=== PATIENT | female | born 1990 | race Caucasian/White ===

== ENCOUNTER → 2017-06-05 | Outpatient (CLI) | payer OTHER ==
--- NOTE | 2017-06-05 18:16 | US ---
EXAMINATION TYPE: US gallbladder DATE OF EXAM: 06/05/2017 COMPARISON: NONE CLINICAL HISTORY: R10.9 Abdominal Pain K21.9 Gerd. RUQ pain and nausea EXAM MEASUREMENTS: Liver Length: 21.6 cm Gallbladder Wall: 3 cm CBD: 0.41 cm Right Kidney: 12.5 x 4.0 x 5.4 cm Exam limitations due to body habitus. Pancreas: Tail obscured by overlying bowel gas Liver: Increased attenuation Gallbladder: echogenic foci seen with shadowing Evidence for sonographic Johnston's sign: No CBD: wnl Right Kidney: No hydronephrosis or masses seen Echogenic foci seen in gallbladder with shadowing. IMPRESSION: Multiple gallstones. No dilated ducts.
== END | disposition home or self-care (01) ==
LOC: RADUSMAIN 16:46
PROVIDERS: ATTEND Family Medicine
DX: K80.80 Other cholelithiasis without obstruction (principal)
CPT/HCPCS: 76705

== ENCOUNTER → 2017-06-08 | Outpatient (CLI) | payer OTHER ==
[2017-06-08 11:13] LABS: HCT 43.1 % (34.0-46.0); HGB 14.2 gm/dL (11.4-16.0); MCH 29.2 pg (25.0-35.0); MCHC 33.1 g/dL (31.0-37.0); MCV 88.2 fL (80.0-100.0); Mean Platelet Volume 8.2; Platelet Count 341 k/uL (150-450); RBC 4.89 m/uL (3.80-5.40); RDW 13.6 % (11.5-15.5); WBC 12.1 k/uL (3.8-10.6)
== END | disposition home or self-care (01) ==
LOC: LABPAT 09:45
PROVIDERS: ATTEND Surgery
DX: Z01.812 Encounter for preprocedural laboratory examination (principal); K80.80 Other cholelithiasis without obstruction
CPT/HCPCS: 36415; 85027

== ENCOUNTER 2017-06-11 09:56 | Day surgery (SDC) | payer OTHER ==
[2017-06-08 09:05] VITALS: BMI 46.7
[~2017-06-11 09:56] MED LIST: DEXAMETHASONE SOD PHOSPHATE 10 MG/ML 1 ML VIAL IV ONE; HEPARIN SODIUM,PORCINE 5,000 UNIT/ML 1 ML VIAL SQ ONE; LACTATED RINGERS 1,000 ML IV SCH; MIDAZOLAM 2 MG/2 ML VIAL IV PRN; MORPHINE SULFATE 4 MG/ML SYRINGE IV PRN; ONDANSETRON 4 MG/2 ML VIAL IVP ONE; SCOPOLAMINE 1.5MG/72HR PATCH TRANSDERM ONE
[2017-06-11] MEDS ORDERED: LIDOCAINE 1% 20 ML VIAL (10MG/ML) FOR IV START INTRADERMA ONE (10:20)
--- NOTE | 2017-06-11 10:50 | P.GSHP ---
History of Present Illness H&P Date: 06/11/17 Chief Complaint: Right upper quadrant pain Is a 26-year-old female for from Dr. Samuels. Patient rents today for laparoscopic cholestatic. She's had complaints of right quadrant pain. Her recent ultrasound shows evidence of cholelithiasis. Past Medical History Past Medical History: No Reported History Additional Past Medical History / Comment(s): migraines History of Any Multi-Drug Resistant Organisms: None Reported Past Surgical History: Tonsillectomy Additional Past Surgical History / Comment(s): carpal tunnel repair Past Anesthesia/Blood Transfusion Reactions: No Reported Reaction Smoking Status: Current every day smoker - Past Family History Mother Family Medical History: No Reported History Medications and Allergies Home Medications Medication Instructions Recorded Confirmed Type Ibuprofen [Motrin] 800 mg PO Q6HR PRN 11/23/14 06/11/17 History Dextroamphetamine/Amphetamine 30 mg PO BID 06/08/17 06/11/17 History [Adderall] Allergies Allergy/AdvReac Type Severity Reaction Status Date / Time No Known Allergies Allergy Verified 06/11/17 10:21 Surgical - Exam Vital Signs Temp Pulse Resp BP Pulse Ox 97.8 F 75 16 158/89 97 06/11/17 10:38 06/11/17 10:38 06/11/17 10:38 06/11/17 10:38 06/11/17 10:38 - General well developed, no distress - Eyes PERRL - ENT normal pinna - Neck no masses - Respiratory normal expansion - Cardiovascular Rhythm: regular - Abdomen Abdomen: soft, non tender Assessment and Plan Assessment: Roddick cholecystitis Cholelithiasis We'll perform laparoscopic cholecystectomy.
[2017-06-11] MEDS ORDERED: HYDROmorphone (PF) 1 MG/ML ONE (11:09)
[2017-06-11] MEDS ORDERED: LIDOCAINE 1% INJ 10MG/ML (20 ML MDV) ONE (11:09)
[2017-06-11] MEDS ORDERED: fentaNYL (PF) 50 MCG/ML 2 ML AMP ONE (11:09)
[2017-06-11] MEDS ORDERED: PROPOFOL 10 MG/ML 20 ML VIAL IV ONE (11:09)
[2017-06-11] MEDS ORDERED: GLYCOPYRROLATE 0.2 MG/ML 2 ML VIAL ONE (11:09)
[2017-06-11] MEDS ORDERED: KETOROLAC 30 MG/ML 1 ML VIAL ONE (11:09)
[2017-06-11] MEDS ORDERED: MIDAZOLAM 2 MG/2 ML VIAL ONE (11:09)
[2017-06-11] MEDS ORDERED: ROCURONIUM BROMIDE 10 MG/ML 10 ML VIAL IV ONE (11:09)
[2017-06-11] MEDS ORDERED: SUCCINYLCHOLINE CHLORIDE 100 MG/5 ML SYR IV ONE (11:09)
[2017-06-11] MEDS ORDERED: NEOSTIGMINE 1 MG/ML 10 ML VIAL ONE (11:09)
[2017-06-11] MEDS ORDERED: BUPIVACAINE (PF) 0.25% 30 ML VIAL SQ ONE ×2 (11:29→11:35)
--- NOTE | 2017-06-11 11:54 | P.OP ---
Date of Procedure: 06/11/17 Preoperative Diagnosis: Cholecystitis Postoperative Diagnosis: Cholecystitis Procedure(s) Performed: Laparoscopic cholecystectomy Anesthesia: FABI Surgeon: John Fuentes Estimated Blood Loss (ml): 5 Pathology: other (Gallbladder) Condition: stable Disposition: PACU Description of Procedure: The patient was placed on the operating table. The patient received a general endotracheal tube anesthesia. The patients abdomen was prepped and draped in the usual sterile fashion. Through an infraumbilical stab incision, the fascia of the anterior abdominal wall was grasped with a pair of Kochers and then the Veress needle was placed in the peritoneal cavity. Position of the Veress needle was confirmed with positive drop test. The abdomen was then insufflated. After adequate insufflation, the 10 mm trocar was placed in the peritoneal cavity. Following this the laparoscope was placed in the peritoneal cavity. The patient was placed in the head-up, right side up position and then a 5 mm trocar was placed in the right lateral and right subcostal position under direct visualization. A 8 mm trocar was placed in the epigastric position. The gallbladder was grasped in the fundus and infundibulum. Traction on the gallbladder was placed in the lateral and the cephalad positions. The triangle of Calot was visualized.. The cystic duct was bluntly dissected until the union of the cystic duct and common bile duct was seen. The cystic duct was then divided and sealed with the Harmonic scissors. A PDS Endoloop was then placed throughout the cystic duct stump. The cystic artery divided and sealed with the Harmonic scissors. The gallbladder was then removed from the liver bed using Harmonic scissors. The gallbladder was then extracted through the epigastric port site. Operative field was checked for any bleeding spots and Harmonic scissors was used to coagulate the liver bed. The abdomen was irrigated. The trocars were removed. The skin was closed using interrupted 3-0 Vicryl suture. Dermabond dressing were applied. The patient tolerated the procedure well.
[2017-06-11 12:12] VITALS: TEMP 97.1
[2017-06-11] MEDS ORDERED: HYDROmorphone 2 MG/ML 1 ML SYRINGE IVP ONE ×3 (12:12→12:48)
[2017-06-11] MEDS ORDERED: diphenhydrAMINE 50 MG/ML 1 ML VIAL IVP ONE (13:37)
[2017-06-11] MEDS ORDERED: HYDROcodone/APAP 7.5-325MG 1 EACH TAB PO ONE (15:21)
[2017-06-11 15:34] VITALS: BP 121/81; PULSE 90; RESP 20
== END 2017-06-11 16:05 | disposition home or self-care (01) ==
LOC: OR 09:56
PROVIDERS: ATTEND Surgery
DX: K80.10 Calculus of gallbladder with chronic cholecystitis without obstruction (principal); F90.9 Attention-deficit hyperactivity disorder, unspecified type; G43.909 Migraine, unspecified, not intractable, without status migrainosus; F17.200 Nicotine dependence, unspecified, uncomplicated; Z79.899 Other long term (current) drug therapy
CPT/HCPCS: 47562; 81025; 88304; J2250; J1170 ×2; J1200; J1644; J1100; J2710; J0690; J2405; J2001; J3010; J1885; J0330; J2704

== ENCOUNTER 2017-09-20 11:44 | Emergency (ER) | payer OTHER ==
[2017-09-20] MEDS ORDERED: ONDANSETRON 4 MG/2 ML VIAL IVP STA (12:02)
[2017-09-20] MEDS ORDERED: SODIUM CHLORIDE 0.9% 1,000 ML IV STA (12:02)
--- NOTE | 2017-09-20 12:05 | ED ---
General Adult HPI - General Chief complaint: Nausea/Vomiting/Diarrhea Stated complaint: Vomiting Time Seen by Provider: 09/20/17 11:53 Source: patient, RN notes reviewed Mode of arrival: ambulatory Limitations: no limitations - History of Present Illness Initial comments: 27-year-old female presents for evaluation nausea vomiting. Patient's symptoms began while at work yesterday approximately 12 hours prior to arrival. She's had approximately 3 episodes of vomiting each hour which she describes as primarily stomach acid. No blood. Patient is also had several episodes of diarrhea associated with this. She complains of nausea with minimal abdominal pain. Pain only present with vomiting. Patient is currently 4 weeks . She had artificial insemination 4 weeks ago and has not had menstrual cycle. She did take a home test which was positive. She denies any lower abdominal cramping. Denies vaginal bleeding or vaginal discharge. - Related Data Home Medications Medication Instructions Recorded Confirmed Azithromycin [Zithromax Z-pack] See Taper PO DAILY 09/20/17 09/20/17 Previous Rx's Medication Instructions Recorded Ondansetron Odt [Zofran Odt] 4 mg PO Q8HR PRN #10 tab 09/20/17 Pnv No.95/Ferrous Fum/Folic AC 1 each PO DAILY #90 tablet 09/20/17 [ Multivitamin Tablet] Allergies Allergy/AdvReac Type Severity Reaction Status Date / Time No Known Allergies Allergy Verified 09/20/17 11:58 Review of Systems ROS Statement: Those systems with pertinent positive or pertinent negative responses have been documented in the HPI. ROS Other: All systems not noted in ROS Statement are negative. Past Medical History Past Medical History: No Reported History Additional Past Medical History / Comment(s): migraines History of Any Multi-Drug Resistant Organisms: None Reported Past Surgical History: Tonsillectomy Additional Past Surgical History / Comment(s): carpal tunnel repair Past Anesthesia/Blood Transfusion Reactions: No Reported Reaction Past Psychological History: ADD/ADHD, Depression Smoking Status: Current every day smoker Past Alcohol Use History: None Reported Past Drug Use History: None Reported - Past Family History Mother Family Medical History: No Reported History General Exam Limitations: no limitations General appearance: alert, in no apparent distress Head exam: Present: atraumatic, normocephalic Eye exam: Present: normal appearance, PERRL ENT exam: Present: normal exam Neck exam: Present: normal inspection. Absent: tenderness, meningismus Respiratory exam: Present: normal lung sounds bilaterally. Absent: respiratory distress, wheezes Cardiovascular Exam: Present: normal rhythm, tachycardia GI/Abdominal exam: Present: soft. Absent: distended, tenderness, guarding Extremities exam: Present: normal inspection, normal capillary refill. Absent: pedal edema Back exam: Present: normal inspection, full ROM Neurological exam: Present: alert, oriented X3, CN II-XII intact. Absent: motor sensory deficit Psychiatric exam: Present: normal affect, normal mood Skin exam: Present: warm, dry, intact. Absent: cyanosis, diaphoretic Course Vital Signs 09/20/17 11:50 Temperature 98 F Pulse Rate 106 H Respiratory 20 Rate Blood Pressure 125/91 O2 Sat by Pulse 98 Oximetry - Reevaluation(s) Reevaluation #1: 09/20/17 14:13 On reevaluation, patient is feeling better, no episodes of vomiting. Medical Decision Making - Medical Decision Making 27-year-old female presenting with nausea and vomiting. She also had some mild diarrhea. Overall well-appearing, stable vitals, soft nondistended abdomen. Laboratory studies reveal mild leukocytosis at 12.2 nonspecific at this time. Hemoglobin stable, lites within normal limits. Urine is positive for 1+ ketones consistent with dehydration. Beta hCG is 760. This does represent early . Patient is having no lower abdominal cramping and no vaginal bleeding. She will follow-up with OB as an outpatient. She is given Zofran and vitamins. - Lab Data Result diagrams: 09/20/17 12:55 09/20/17 12:55 Lab Results 09/20/17 09/20/17 09/20/17 Range/Units 11:45 11:45 12:55 WBC 12.2 H (3.8-10.6) k/uL RBC 5.08 (3.80-5.40) m/uL Hgb 15.1 (11.4-16.0) gm/dL Hct 43.0 (34.0-46.0) % MCV 84.7 (80.0-100.0) fL MCH 29.8 (25.0-35.0) pg MCHC 35.2 (31.0-37.0) g/dL RDW 12.6 (11.5-15.5) % Plt Count 276 (150-450) k/uL Neutrophils % 92 % Lymphocytes % 4 % Monocytes % 3 % Eosinophils % 1 % Basophils % 0 % Neutrophils # 11.2 H (1.3-7.7) k/uL Lymphocytes # 0.5 L (1.0-4.8) k/uL Monocytes # 0.4 (0-1.0) k/uL Eosinophils # 0.1 (0-0.7) k/uL Basophils # 0.0 (0-0.2) k/uL Sodium (137-145) mmol/L Potassium (3.5-5.1) mmol/L Chloride (98-107) mmol/L Carbon Dioxide (22-30) mmol/L Anion Gap mmol/L BUN (7-17) mg/dL Creatinine (0.52-1.04) mg/dL Est GFR (CKD-EPI)AfAm (>60 ml/min/1.73 sqM) Est GFR (CKD-EPI)NonAf (>60 ml/min/1.73 sqM) Glucose (74-99) mg/dL Calcium (8.4-10.2) mg/dL Total Bilirubin (0.2-1.3) mg/dL AST (14-36) U/L ALT (9-52) U/L Alkaline Phosphatase (38-126) U/L Total Protein (6.3-8.2) g/dL Albumin (3.5-5.0) g/dL Lipase (23-300) U/L HCG, Quant mIU/mL Urine Color Yellow Urine Appearance Turbid H (Clear) Urine pH 6.5 (5.0-8.0) Ur Specific [place] 1.026 (1.001-1.035) Urine Protein 1+ H (Negative) Urine Glucose (UA) Negative (Negative) Urine Ketones 1+ H (Negative) Urine Blood Negative (Negative) Urine Nitrite Negative (Negative) Urine Bilirubin Negative (Negative) Urine Urobilinogen <2.0 (<2.0) mg/dL Ur Leukocyte Esterase Trace H (Negative) Ur Squamous Epith Cells 18 H (0-4) /hpf Amorphous Sediment Rare H (None) /hpf Urine Mucus Many H (None) /hpf Urine HCG, Qual Detected (Not Detectd) 09/20/17 Range/Units 12:55 WBC (3.8-10.6) k/uL RBC (3.80-5.40) m/uL Hgb (11.4-16.0) gm/dL Hct (34.0-46.0) % MCV (80.0-100.0) fL MCH (25.0-35.0) pg MCHC (31.0-37.0) g/dL RDW (11.5-15.5) % Plt Count (150-450) k/uL Neutrophils % % Lymphocytes % % Monocytes % % Eosinophils % % Basophils % % Neutrophils # (1.3-7.7) k/uL Lymphocytes # (1.0-4.8) k/uL Monocytes # (0-1.0) k/uL Eosinophils # (0-0.7) k/uL Basophils # (0-0.2) k/uL Sodium 141 (137-145) mmol/L Potassium 4.4 (3.5-5.1) mmol/L Chloride 104 (98-107) mmol/L Carbon Dioxide 23 (22-30) mmol/L Anion Gap 14 mmol/L BUN 8 (7-17) mg/dL Creatinine 0.54 (0.52-1.04) mg/dL Est GFR (CKD-EPI)AfAm >90 (>60 ml/min/1.73 sqM) Est GFR (CKD-EPI)NonAf >90 (>60 ml/min/1.73 sqM) Glucose 121 H (74-99) mg/dL Calcium 9.3 (8.4-10.2) mg/dL Total Bilirubin 0.8 (0.2-1.3) mg/dL AST 23 (14-36) U/L ALT 38 (9-52) U/L Alkaline Phosphatase 71 (38-126) U/L Total Protein 6.8 (6.3-8.2) g/dL Albumin 4.5 (3.5-5.0) g/dL Lipase 34 (23-300) U/L HCG, Quant 760.9 mIU/mL Urine Color Urine Appearance (Clear) Urine pH (5.0-8.0) Ur Specific [place] (1.001-1.035) Urine Protein (Negative) Urine Glucose (UA) (Negative) Urine Ketones (Negative) Urine Blood (Negative) Urine Nitrite (Negative) Urine Bilirubin (Negative) Urine Urobilinogen (<2.0) mg/dL Ur Leukocyte Esterase (Negative) Ur Squamous Epith Cells (0-4) /hpf Amorphous Sediment (None) /hpf Urine Mucus (None) /hpf Urine HCG, Qual (Not Detectd) Disposition Clinical Impression: , Nausea & vomiting Disposition: HOME SELF-CARE Condition: Good Instructions: Acute Nausea and Vomiting (ED) Prescriptions: Ondansetron Odt [Zofran Odt] 4 mg PO Q8HR PRN #10 tab PRN Reason: Vomiting Pnv No.95/Ferrous Fum/Folic AC [ Multivitamin Tablet] 1 each PO DAILY # 90 tablet Is patient prescribed a controlled substance at d/c from ED?: No Referrals: Tj Samuels DO [Primary Care Provider] - 1-2 days Kitty Rodriguez DO [Doctor of Osteopathic Medicine] - 1-2 days Time of Disposition: 14:15
[2017-09-20 12:13] LABS: Amorphous Sediment,Urine Rare /hpf; Appearance,Urine Turbid (Clear); Bilirubin,Urine Negative (Negative); Blood,Urine Negative (Negative); Color,Urine Yellow; Glucose,Urine (UA) Negative (Negative); Ketones,Urine 1+ (Negative); Leukocyte Esterase,Urine Trace (Negative); Mucus,Urine Many /hpf; Nitrite,Urine Negative (Negative); PH, Urine 6.5 (5.0-8.0); Protein,Urine 1+ (Negative); Specific Gravity,Urine 1.026 (1.001-1.035); Squamous Epithelial Cell,Urine 18 /hpf (0-4); Urobilinogen,Urine <2.0 mg/dL (<2.0)
[2017-09-20 13:22] LABS: Basophils % (A) 0 %; Eosinophils # (A) 0.1 k/uL (0-0.7); Eosinophils % (A) 1 %; HGB 15.1 gm/dL (11.4-16.0); Lymphocytes # (A) 0.5 k/uL (1.0-4.8); Lymphocytes % (A) 4 %; MCH 29.8 pg (25.0-35.0); MCHC 35.2 g/dL (31.0-37.0); MCV 84.7 fL (80.0-100.0); Mean Platelet Volume 7.6; Monocytes # (A) 0.4 k/uL (0-1.0); Monocytes % (A) 3 %; Neutrophils # (A) 11.2 k/uL (1.3-7.7); Neutrophils % (A) 92 %; Platelet Count 276 k/uL (150-450); RBC 5.08 m/uL (3.80-5.40); RDW 12.6 % (11.5-15.5); WBC 12.2 k/uL (3.8-10.6)
[2017-09-20 13:29] LABS: ALT 38 U/L (9-52); AST 23 U/L (14-36); Albumin 4.5 g/dL (3.5-5.0); Alkaline Phosphatase 71 U/L (38-126); Anion Gap 14 mmol/L; Blood Urea Nitrogen 8 mg/dL (7-17); Calcium 9.3 mg/dL (8.4-10.2); Carbon Dioxide 23 mmol/L (22-30); Chloride 104 mmol/L (98-107); Glucose 121 mg/dL (74-99); Lipase 34 U/L (23-300); Potassium 4.4 mmol/L (3.5-5.1); Sodium 141 mmol/L (137-145); Total Bilirubin 0.8 mg/dL (0.2-1.3); Total Protein 6.8 g/dL (6.3-8.2)
[2017-09-20 13:46] LABS: HCG,Quantitative Serum 760.9 mIU/mL
[2017-09-20 14:25] VITALS: BP 126/63; PULSE 93; RESP 18; TEMP 98.1
== END 2017-09-20 14:27 | disposition home or self-care (01) ==
LOC: EC 11:44
DX: O21.9 Vomiting of pregnancy, unspecified (principal); O99.111 Other diseases of the blood and blood-forming organs and certain disorders involving the immune mechanism complicating pregnancy, first trimester; D72.829 Elevated white blood cell count, unspecified; O99.89 Other specified diseases and conditions complicating pregnancy, childbirth and the puerperium; R82.4 Acetonuria; R00.0 Tachycardia, unspecified; R19.7 Diarrhea, unspecified; R10.9 Unspecified abdominal pain; O99.331 Smoking (tobacco) complicating pregnancy, first trimester; F17.200 Nicotine dependence, unspecified, uncomplicated; Z3A.01 Less than 8 weeks gestation of pregnancy
CPT/HCPCS: 36415; 80053; 83690; 85025; 81001; 81025; 84702; 99284; 96374; 96361; J2405

== ENCOUNTER 2018-03-23 10:16 | Outpatient (CLI) | payer OTHER ==
[2018-03-23 10:40] LABS: Appearance,Urine Clear (Clear); Bilirubin,Urine Negative (Negative); Blood,Urine Negative (Negative); Color,Urine Colorless; Glucose,Urine (UA) Negative (Negative); Ketones,Urine Negative (Negative); Leukocyte Esterase,Urine Negative (Negative); Nitrite,Urine Negative (Negative); PH, Urine 6.5 (5.0-8.0); Protein,Urine Negative (Negative); Specific Gravity,Urine 1.002 (1.001-1.035); Urobilinogen,Urine <2.0 mg/dL (<2.0)
--- NOTE | 2018-06-04 09:07 | P.MSEPDOC ---
Presenting Problems - Arrival Data Date of Arrival on Unit: 03/23/18 Time of Arrival on Unit: 10:15 Mode of Transport: Wheelchair Disposition - Disposition Discharge Date: 03/23/18 Discharge Time: 10:15 I agree with the RN Medical Screening Exam: Yes Risk & Benefit of care provided described in d/c instruction: Yes Diagnosis: RELATED CONDITIONS, UNSPECIFIED, THIRD TRIMESTER
== END 2018-03-23 11:15 | disposition home or self-care (01) ==
LOC: FBPOP 10:16
PROVIDERS: ATTEND Obstetrics & Gynecology
DX: O26.93 Pregnancy related conditions, unspecified, third trimester (principal); Z3A.00 Weeks of gestation of pregnancy not specified
CPT/HCPCS: 59025; 81003; 99213

== ENCOUNTER 2018-04-28 19:25 | Outpatient (CLI) | payer OTHER ==
[2018-04-28 20:39] VITALS: BP 145/87; PULSE 107; RESP 16; TEMP 97.6
--- NOTE | 2018-05-02 17:59 | P.MSEPDOC ---
Presenting Problems - Arrival Data Date of Arrival on Unit: 04/28/18 Time of Arrival on Unit: 19:25 Mode of Transport: Ambulatory - Complaint OB-Reason for Admission/Chief Complaint: Rule Out PROM Medical History - Information : 1 Para: 0 Term: 0 : 0 Abortions: Spontaneous or Elective: 0 Number of Living Children: 0 - Gestational Age Gestational Age by MITUL (wks/days): 36 Weeks and 1 Days - History Complications: GDM, Smoker Review of Systems - Review of Systems Constitutional: No problems Breast: No problems ENT: No problems Cardiovascular: No problems Respiratory: No problems Gastrointestinal: No problems Genitourinary: No problems Musculoskeletal: No problems Neurological: No problems Skin: No problems Vital Signs - Temperature Temperature: 97.6 F Temperature Source: Oral - Pulse Right Brachial Pulse Rate: 107 Pulse Assessment Method: Automatic Cuff - Respirations Respiratory Rate: 16 Oxygen Delivery Method: Room Air O2 Sat by Pulse Oximetry: 98 - Blood Pressure Right Arm Blood Pressure: 145/87 Blood Pressure Mean: 106 Blood Pressure Source: Automatic Cuff Medical Screen Scoring (Pre) - Cervical Exam Dilation: 1-3 cm = 1 Membranes: Intact - Uterine Contractions Frequency: N/A Duration: N/A Intensity: N/A - Maternal Vital Signs Maternal Temperature: N/A Maternal Blood Pressure: N/A Signs of Preeclampsia: N/A Maternal Respirations: N/A - Pain Assessment Pain Scale Used: Numeric (1 - 10) Pain Intensity: 0 - Assessment Baseline FHR: 120 Heart Rate - NICHD Category: Category I (Normal) = 0 NST: Reactive Position: N/A - Total Score Total Score (Pre): 1 - Level of Risk Level of Risk: Low (0-5) Physician Notification (Pre) - Physician Notified Physician Notified Date: 04/28/18 Physician Notified Time: 20:17 Physician/Practitioner Notifed:: Dr. Lala Spoke With: Dr. Lala New Order Received: Yes - Notification Comment Comment: Dr. Lala given report on pt in tr. Pt c/o of pressure and leaking. Amsnisure negative. Reactive Nst. Vag exam of fingertip/thick/high. Bps 140s/80s. Gdm- insulin controlled. Orders recieved to d/c pt to home. To instruct pt to follow up with office in am to be seen for bps. Disposition - Disposition OB Disposition: Discharge to home Discharge Date: 04/28/18 Discharge Time: 20:25 I agree with the RN Medical Screening Exam: Yes Risk & Benefit of care provided described in d/c instruction: No Diagnosis: FALSE LABOR BEFORE 37 COMPLETED WEEKS OF GEST, THIRD TRI
== END 2018-04-28 20:25 | disposition home or self-care (01) ==
LOC: FBPOP 19:25
PROVIDERS: ATTEND Obstetrics & Gynecology
DX: O47.03 False labor before 37 completed weeks of gestation, third trimester (principal); O99.333 Smoking (tobacco) complicating pregnancy, third trimester; Z3A.36 36 weeks gestation of pregnancy
CPT/HCPCS: 59025; 99213

== ENCOUNTER 2018-05-15 08:57 | Outpatient (CLI) | payer OTHER ==
[2018-05-15 09:50] LABS: Glucose,Whole Blood 113 mg/dL (75-99)
[2018-05-15 09:52] VITALS: BP 157/92; PULSE 111; RESP 16; TEMP 97.3
[2018-05-15 09:56] LABS: Appearance,Urine Turbid (Clear); Bacteria,Urine Occasional /hpf; Bilirubin,Urine Negative (Negative); Blood,Urine Negative (Negative); Color,Urine Yellow; Glucose,Urine (UA) Negative (Negative); Ketones,Urine Negative (Negative); Leukocyte Esterase,Urine Small (Negative); Mucus,Urine Rare /hpf; Nitrite,Urine Negative (Negative); PH, Urine 6.5 (5.0-8.0); Protein,Urine Trace (Negative); RBC,Urine 1 /hpf (0-5); Specific Gravity,Urine 1.013 (1.001-1.035); Squamous Epithelial Cell,Urine 70 /hpf (0-4); Urobilinogen,Urine <2.0 mg/dL (<2.0); WBC,Urine 5 /hpf (0-5)
[2018-05-15 10:17] LABS: ALT 42 U/L (9-52); AST 28 U/L (14-36); Anion Gap 8 mmol/L; Blood Urea Nitrogen 11 mg/dL (7-17); Calcium 8.6 mg/dL (8.4-10.2); Carbon Dioxide 22 mmol/L (22-30); Chloride 107 mmol/L (98-107); Glucose 106 mg/dL (74-99); Potassium 4.4 mmol/L (3.5-5.1); Sodium 137 mmol/L (137-145); Uric Acid 5.4 mg/dL (3.7-7.4)
--- NOTE | 2018-06-04 09:05 | P.MSEPDOC ---
Presenting Problems - Arrival Data Date of Arrival on Unit: 05/15/18 Time of Arrival on Unit: 09:00 Mode of Transport: Ambulatory - Complaint OB-Reason for Admission/Chief Complaint: Acute Nausea/Vomiting Medical History - Information : 1 Para: 0 - Gestational Age Gestational Age by MITUL (wks/days): 38 Weeks and 4 Days - History Complications: GDM Review of Systems - Review of Systems Constitutional: No problems Breast: No problems ENT: No problems Cardiovascular: No problems Respiratory: No problems Gastrointestinal: No problems Genitourinary: No problems Musculoskeletal: No problems Neurological: No problems Skin: No problems Vital Signs - Temperature Temperature: 97.3 F Temperature Source: Oral - Pulse Right Sitting Brachial Pulse Rate: 111 Pulse Assessment Method: Automatic Cuff - Respirations Respiratory Rate: 16 O2 Sat by Pulse Oximetry: 100 - Blood Pressure Right Arm Sitting Blood Pressure: 157/92 Blood Pressure Mean: 113 Blood Pressure Source: Automatic Cuff Medical Screen Scoring (Pre) - Cervical Exam Dilation: 0 cm = 0 Effacement: Exam Deferred Membranes: Intact - Uterine Contractions Frequency: N/A Duration: N/A Intensity: N/A - Maternal Vital Signs Maternal Temperature: N/A Maternal Blood Pressure: Diastolic > 89 = 1 Signs of Preeclampsia: Headache = 1, Nausea/Vomiting = 1, Visual Disturbance = 1 Maternal Respirations: N/A - Pain Assessment Pain Scale Used: Numeric (1 - 10) Pain Intensity: 0 - Maternal Trauma Maternal Trauma: N/A - Assessment Baseline FHR: 130 Heart Rate - NICHD Category: Category I (Normal) = 0 NST: Reactive Position: N/A Station: N/A - Total Score Total Score (Pre): 4 - Level of Risk Level of Risk: Low (0-5) Physician Notification (Pre) - Physician Notified Physician Notified Date: 05/15/18 Physician Notified Time: 10:24 Physician/Practitioner Notifed:: Dr Cerna Spoke With: Dr Cerna New Order Received: Yes (discharge) Disposition - Disposition OB Disposition: Discharge to home Discharge Date: 05/15/18 Discharge Time: 10:40 I agree with the RN Medical Screening Exam: Yes Risk & Benefit of care provided described in d/c instruction: Yes Diagnosis: RELATED CONDITIONS, UNSPECIFIED, THIRD TRIMESTER
== END 2018-05-15 10:40 | disposition home or self-care (01) ==
LOC: FBPOP 08:57
PROVIDERS: ATTEND Obstetrics & Gynecology
DX: O26.93 Pregnancy related conditions, unspecified, third trimester (principal); Z3A.38 38 weeks gestation of pregnancy
CPT/HCPCS: 59025; 80048; 81001; 84450; 84460; 84550; 99215

== ENCOUNTER 2018-05-20 06:03 | Inpatient (IN) | payer OTHER ==
[2018-05-16 15:58] VITALS: BMI 46.7
[2018-05-20] MEDS ORDERED: LACTATED RINGERS 1,000 ML IV ONE (06:18)
[2018-05-20] MEDS ORDERED: CITRIC ACID-SODIUM CITRATE 15 ML CUP PO ONE (06:18)
[2018-05-20 06:24] LABS: Glucose,Whole Blood 102 mg/dL (75-99)
[2018-05-20] MEDS ORDERED: ceFAZolin 3 GM in SODIUM CHLORIDE 0.9% 100 ML IVPB ONE (06:30)
[2018-05-20] MEDS ORDERED: LACTATED RINGERS 1,000 ML IV SCH (06:30)
[2018-05-20 06:33] LABS: Basophils % (A) 0 %; Eosinophils # (A) 0.3 k/uL (0-0.7); Eosinophils % (A) 2 %; HCT 36.2 % (34.0-46.0); HGB 12.5 gm/dL (11.4-16.0); Lymphocytes # (A) 3.2 k/uL (1.0-4.8); Lymphocytes % (A) 21 %; MCH 30.1 pg (25.0-35.0); MCHC 34.6 g/dL (31.0-37.0); MCV 86.9 fL (80.0-100.0); Mean Platelet Volume 8.1; Monocytes # (A) 0.6 k/uL (0-1.0); Monocytes % (A) 4 %; Neutrophils # (A) 10.8 k/uL (1.3-7.7); Neutrophils % (A) 71 %; Platelet Count 287 k/uL (150-450); RBC 4.16 m/uL (3.80-5.40); RDW 14.1 % (11.5-15.5); WBC 15.1 k/uL (3.8-10.6)
--- NOTE | 2018-05-20 09:17 | P.HPOB ---
History of Present Illness H&P Date: 05/20/18 Chief Complaint: Here for primary low transverse section, suspected macrosomi This is a 27-year-old white female 1 para 0 EDC 05/25/2018 at 39-2/7 weeks' gestation. Patient presents for primary low transverse section. Sonographic measurements are consistent with all measurements greater than 97.7 percentile. Been a gestational diabetic on insulin, the risk for shoulder dystocia was discussed in detail and the patient has elected to proceed with primary . Risks benefits of surgery and anesthesia all discussed in detail. Patient denies uterine contractions or vaginal bleeding, no fluid leakage. history is significant for blood type O-, rubella status immune. VDRL testing, urine culture, hepatitis B surface antigen, HIV testing, gonorrhea and chlamydia cultures, urine drug screen, group B strep cultures all negative. Three-hour GTT consistent with gestational diabetes. Past medical history significant for ADHD and cholelithiasis. Past surgical history cholecystectomy, tonsillectomy and adenoidectomy, carpal tunnel release. Current medications insulin subcutaneously twice a day, vitamin daily. ALLERGIES none known. Family history is unremarkable. Social history patient's is named Yeni, she is a previous 1 pack per day tobacco smoker but quit during her , she denies alcohol or drug use. On exam the patient is 5 foot 11 inches, 334 pounds, initial blood pressure 140/ 88, patient is afebrile. The general physical exam reveals chest to be clear, trace peripheral edema, fundal height of 46cm. cervix is long thick and closed. heart rate is consistent with reactive NST. Breasts are not engorged. Regular rate and rhythm on cardiac exam. Impression: 39-2/7 weeks intrauterine , here for primary low transverse section for suspected macrosomia, all sonographic measurements greater than 97.7 percentile. Option for tubal ligation discussed and declined. Plan we will proceed with primary low transverse section. 3 g of Ancef are given. All risks and benefits of surgery and anesthesia reviewed. Blood sugar on admission 105. Review of Systems Constitutional: Reports as per HPI Past Medical History Past Medical History: No Reported History Additional Past Medical History / Comment(s): migraines, gestational diabetes 2018 History of Any Multi-Drug Resistant Organisms: None Reported Past Surgical History: Cholecystectomy, Tonsillectomy Additional Past Surgical History / Comment(s): carpal tunnel repair Past Anesthesia/Blood Transfusion Reactions: No Reported Reaction Past Psychological History: ADD/ADHD, Depression Additional Psychological History / Comment(s): not medicated during her Smoking Status: Current every day smoker Past Alcohol Use History: None Reported Additional Past Alcohol Use History / Comment(s): has smoked for 9 years; down to 1/2ppd Past Drug Use History: None Reported - Past Family History Mother Family Medical History: No Reported History Medications and Allergies Home Medications Medication Instructions Recorded Confirmed Type Pnv No.95/Ferrous Fum/Folic AC 1 each PO DAILY #90 tablet 09/20/17 05/20/18 Rx [ Multivitamin Tablet] Insulin Aspart [NovoLOG] 8 unit SQ AC-TID 04/28/18 05/20/18 History Insulin Glargine,Hum.rec.anlog 36 unit SQ 0930 04/28/18 05/20/18 History [Basaglar Kwikpen U-100] Allergies Allergy/AdvReac Type Severity Reaction Status Date / Time No Known Allergies Allergy Verified 05/20/18 06:17 Exam Vital Signs Temp Pulse Resp BP Pulse Ox 05/20/18 06:36 96.6 F L 105 H 18 140/88 99 Results Result Diagrams: 05/20/18 06:20 Abnormal Lab Results - Last 24 Hours (Table) 05/20/18 05/20/18 Range/Units 06:18 06:20 WBC 15.1 H (3.8-10.6) k/uL Neutrophils # 10.8 H (1.3-7.7) k/uL POC Glucose (mg/dL) 102 H (75-99) mg/dL Assessment and Plan Assessment: 39-2/7 week intrauterine , suspected macrosomia, gestational diabetic on insulin, maternal morbid obesity. Plan: 3 g of Ancef are given. Primary low transverse section with spinal with Duramorph. Patient offered but declined option for tubal ligation. Time with Patient: Greater than 30
[2018-05-20] MEDS ORDERED: SIMETHICONE 80 MG CHEWABLE PO PRN (09:22)
[2018-05-20] MEDS ORDERED: ONDANSETRON 4 MG/2 ML VIAL IVP PRN ×2 (09:22→09:56)
[2018-05-20] MEDS ORDERED: diphenhydrAMINE 50 MG CAP PO PRN (09:22)
[2018-05-20] MEDS ORDERED: diphenhydrAMINE 25 MG CAP PO PRN (09:22)
[2018-05-20] MEDS ORDERED: ACETAMINOPHEN TAB 325 MG TAB PO PRN (09:22)
[2018-05-20] MEDS ORDERED: ZOLPIDEM 5 MG TAB PO PRN (09:22)
[2018-05-20] MEDS ORDERED: diphenhydrAMINE 50 MG/ML 1 ML VIAL IVP PRN ×2 (09:22)
[2018-05-20] MEDS ORDERED: NALOXONE 0.4 MG/ML 1 ML VIAL IV PRN ×2 (09:22→09:56)
[2018-05-20] MEDS ORDERED: METOCLOPRAMIDE 5 MG/ML 2 ML VIAL IVP PRN (09:22)
[2018-05-20] MEDS ORDERED: ACETAMINOPHEN IV (For NPO) 1,000 MG in EMPTY BAG 1 BAG IVPB ONE (09:22)
--- NOTE | 2018-05-20 09:22 | P.OP ---
Date of Procedure: 05/20/18 Preoperative Diagnosis: 39-2/7 weeks intrauterine , morbid maternal obesity, gestational diabetic on insulin, suspected macrosomia. Postoperative Diagnosis: Same, liveborn female , normal-appearing tubes and ovaries bilaterally, nuchal cord 1 Procedure(s) Performed: Primary low transverse section Anesthesia: spinal Surgeon: Marisel Cerna Nursery Worker #1: Alcides Turk Estimated Blood Loss (ml): 800 IV fluids (ml): 1,200 Urine output (ml): 150 Pathology: other (Placenta) Condition: stable Disposition: PACU Operative Findings: Liveborn female infant, nuchal cord 1, 41 50 g. Normal-appearing tubes and ovaries bilaterally. Description of Procedure: Patient is brought to the operating suite where a spinal analgesia with Duramorph is administered. She's placed in the dorsal supine position with left lateral uterine displacement. 3 g of Ancef are given. The appropriate timeout was performed to assure proper patient and procedural identification. Lo catheter placed to direct drainage. The abdomen is prepped and draped in usual sterile fashion. The analgesia is checked and noted to be adequate. A low transverse skin incision is made in this is carried down through the subcutaneous tissue to the fascia. Fascia is isolated, scored and extended bilaterally with curved Valladares scissors. Subcutaneous tissue is approximately 8 cm deep. Peritoneal layer is identified, opened, and the large disposable a Caitlyn ring retractor is placed for excellent visualization. Bladder is low and therefore separate bladder flap is not created. A low transverse uterine incision is made in this is carried down through the myometrium. Artificial amniorrhexis reveals clear fluid. The uterine incision is extended bluntly. The 's head is delivered occiput anterior. There is a nuchal cord 1 that was reduced. The oropharynx, nasopharynx, and external nares were all bulb suctioned. Patient is officially delivered a liveborn female with scores of 8 and 9 at one and 5 minutes respectively. Cord blood is sent to the lab for evaluation. Infant weighs 9 lbs. 2 oz. or 4150 g. Placenta is delivered manually, it is inspected and noted to be intact with trivascular cord. It is sent to pathology for history of gestational diabetes on insulin. The uterus is then externalized and swept clean. It is massaged. Oxytocin is given. Hemostasis is very good. The uterus is closed in a two-step fashion using 0 Vicryl suture. First layer is running locking, second layer is imbricated. Bilateral tubes and ovaries are inspected and noted to be normal. The abdomen is suctioned with suction on guard the uterus is gently placed back into the abdominal cavity. Bilateral gutters are inspected and cleaned. Uterine incision is clean and dry. Peritoneum was allowed to close by secondary intention. Fascia is closed in a running stitch of 0 Vicryl with over ligation in the midline. Subcutaneous tissue is irrigated, noted to be clean and dry. It is reapproximated in a running stitch of 3-0 Vicryl. 4-0 undyed Monocryl is used subcuticularly for final skin closure. Steri-Strips and Mastisol are applied to the wound. Uterus is massaged. Total estimated blood loss 800 mL, fluid replacement 1200 mL, urine is noted to be clear in the tube and bag, 150 mL total. Patient is brought back to recovery room in very good condition with stable vital signs including 99% O2 saturation, pulse 77, blood pressure 150/81.
[2018-05-20] MEDS ORDERED: MORPHINE SULFATE 4 MG/ML SYRINGE IVP PRN (09:56)
[2018-05-20] MEDS ORDERED: Rhogam IMMUNE GLOBULIN 1,500 UNIT/1 ML IM ONE (11:03)
[2018-05-20] MEDS: LACTATED RINGERS 1,000 ML IV SCH (12:23)
[2018-05-20 13:13] LABS: Hemoglobin A1C 4.9 % (4.0-6.0)
[2018-05-20] MEDS: KETOROLAC 30 MG/ML 1 ML VIAL IVP PRN ×2 (16:59→23:03)
[2018-05-20] MEDS: SENNOSIDES-DOCUSATE SODIUM 1 EACH TAB PO SCH (20:26)
[2018-05-21] MEDS: LACTATED RINGERS 1,000 ML IV SCH (02:38)
[2018-05-21] MEDS: HYDROcodone/APAP 5-325MG 1 EACH TAB PO PRN ×2 (04:04→12:45)
[2018-05-21 09:13] LABS: Basophils % (A) 0 %; Eosinophils # (A) 0.2 k/uL (0-0.7); Eosinophils % (A) 1 %; HCT 32.6 % (34.0-46.0); Lymphocytes # (A) 2.4 k/uL (1.0-4.8); Lymphocytes % (A) 18 %; MCH 29.7 pg (25.0-35.0); MCHC 33.8 g/dL (31.0-37.0); Mean Platelet Volume 8.1; Monocytes # (A) 0.7 k/uL (0-1.0); Monocytes % (A) 5 %; Neutrophils # (A) 9.8 k/uL (1.3-7.7); Neutrophils % (A) 74 %; Platelet Count 245 k/uL (150-450); RDW 14.2 % (11.5-15.5); WBC 13.2 k/uL (3.8-10.6)
--- NOTE | 2018-05-21 10:19 | P.PN ---
Subjective Progress Note Date: 05/21/18 Principal diagnosis: Postoperative day #1 Slept well. Minimal pain. No complaints. Objective - Vital Signs Vital signs: Vital Signs Temp 97.9 F 05/21/18 04:00 Pulse 74 05/21/18 04:00 Resp 20 05/21/18 06:00 BP 128/82 05/21/18 04:00 Pulse Ox 98 05/21/18 04:00 Intake & Output 05/20/18 05/21/18 05/21/18 18:59 06:59 18:59 Output Total 2100 450 Balance -2100 -450 Output: Urine 1300 450 Uretheral (Lo) 800 Estimated Blood Loss 800 Other: # Voids 1 1 - Constitutional General appearance: Present: morbidly obese - EENT Eyes: Present: PERRLA ENT: Present: hearing grossly normal - Neck Neck: Present: normal ROM - Respiratory Respiratory: bilateral: CTA - Cardiovascular Rhythm: regular - Gastrointestinal General gastrointestinal: Present: normal bowel sounds - Integumentary Integumentary Comment(s): Incision clean and dry, well approximated, Steri-Strips applied. Integumentary: Present: normal - Neurologic Neurologic: Present: CNII-XII intact, focal deficits - Musculoskeletal Musculoskeletal: Present: gait normal, strength equal bilaterally - Psychiatric Psychiatric: Present: A&O x's 3, appropriate affect, intact judgment & insight - Labs CBC & Chem 7: 05/21/18 08:57 Labs: Abnormal Lab Results - Last 24 Hours (Table) 05/21/18 Range/Units 08:57 WBC 13.2 H (3.8-10.6) k/uL RBC 3.70 L (3.80-5.40) m/uL Hgb 11.0 L (11.4-16.0) gm/dL Hct 32.6 L (34.0-46.0) % Neutrophils # 9.8 H (1.3-7.7) k/uL Assessment and Plan Assessment: Postoperative day #1, doing well. Plan: Continue postoperative care. Likely discharge home tomorrow. Time with Patient: Less than 30
--- NOTE | 2018-05-21 11:13 | P.PN ---
Progress Note - Text Progress Note Date: 05/21/18 Postoperative day 1 status post section under spinal anesthesia, and intrathecal morphine given for postoperative analgesia, patient doing well, there is no anesthesia related complications, Patient had no headache, vital signs stable , Assessment and plan= postop day 1 status post , doing well there is no anesthesia related complication.
[2018-05-21] MEDS: SENNOSIDES-DOCUSATE SODIUM 1 EACH TAB PO SCH ×2 (14:34→20:35)
[2018-05-21] MEDS: IBUPROFEN 600 MG TAB PO PRN (19:08)
[2018-05-22] MEDS: HYDROcodone/APAP 5-325MG 1 EACH TAB PO PRN (01:36)
[2018-05-22] MEDS: IBUPROFEN 600 MG TAB PO PRN (04:56)
--- NOTE | 2018-05-22 08:07 | P.DS ---
Providers Date of admission: 05/20/18 06:03 Expected date of discharge: 05/22/18 Attending physician: Marisel Cerna Primary care physician: Stated None Hospital Course: This is a 27-year-old white female 1 para 0 EDC 05/25/2018 at 39-2/7 weeks' gestation. Patient's was remarkable for gestational diabetes, requiring insulin. Sonographic evaluation of the fetus revealed all measurements greater than 97th percentile, consistent with large for gestational age. After consultation our plan was to proceed with primary low transverse section due to the risk of shoulder dystocia. Please see dictated history and physical for details. Group B strep cultures negative, blood type O negative, rubella status immune. Patient underwent a primary low transverse section, giving to a liveborn female with scores of 8 and 9 at one and 5 minutes respectively. weighed 4150 g or 9 lbs. 2 oz. Surgery was otherwise unremarkable, estimated blood loss 800 mL's. Please see my dictated operative note for details. This morning the patient is doing well. She is voiding, ambulating, passing flatus without difficulty. Vital signs are stable and she is afebrile. Fundus is firm and in the midline, symmetric and 18 week size. Extremities are negative for edema. Incision is clean and dry, intact, Steri-Strips applied. Breasts are not engorged. Pain is well tolerated with ibuprofen. Patient is being discharged home today in very good condition. She will follow- up in the office with me in 2 weeks. I have reminded her no intercourse, tampons or douching. She will use [id number] Advil or Aleve as needed for pain, or ibuprofen products, 200 mg pills, 3 every 6 hours as needed. I've asked her to call me with any fevers shakes or chills, foul smelling or copious lochia, with the passage of large blood clots, with any pain not alleviated by [id number] products, or indeed with any difficulties or concerns. Patient Condition at Discharge: Good Plan - Discharge Summary Discharge Rx Participant: No New Discharge Prescriptions: No Action Pnv No.95/Ferrous Fum/Folic AC [ Multivitamin Tablet] 1 each PO DAILY #90 tablet Insulin Aspart [NovoLOG] 8 unit SQ AC-TID Insulin Glargine,Hum.rec.anlog [Basaglar Kwikpen U-100] 36 unit SQ 0930 Discharge Medication List Pnv No.95/Ferrous Fum/Folic AC [ Multivitamin Tablet] 1 each PO DAILY # 90 tablet 09/20/17 [Rx] Insulin Aspart [NovoLOG] 8 unit SQ AC-TID 04/28/18 [History] Insulin Glargine,Hum.rec.anlog [Basaglar Kwikpen U-100] 36 unit SQ 0930 [History] Follow up Appointment(s)/Referral(s): Marisel Cerna MD [STAFF PHYSICIAN] - 2 Weeks
[2018-05-22 09:01] VITALS: BP 123/75; PULSE 65; RESP 14; TEMP 97.7
== END 2018-05-22 10:55 | disposition home or self-care (01) | DRG 787 ==
LOC: 4FBP 06:03
PROVIDERS: ADMIT Obstetrics & Gynecology; ATTEND Obstetrics & Gynecology
PROC: 10D00Z1 Extraction of Products of Conception, Low, Open Approach (ICD-10-PCS; principal; 2018-05-20 08:13)
DX: O36.63X0 Maternal care for excessive fetal growth, third trimester, not applicable or unspecified (principal); O99.354 Diseases of the nervous system complicating childbirth; Z37.0 Single live birth; O24.424 Gestational diabetes mellitus in childbirth, insulin controlled; O99.214 Obesity complicating childbirth; E66.01 Morbid (severe) obesity due to excess calories; O69.81X0 Labor and delivery complicated by cord around neck, without compression, not applicable or unspecified; O99.334 Smoking (tobacco) complicating childbirth; F17.210 Nicotine dependence, cigarettes, uncomplicated; O99.344 Other mental disorders complicating childbirth; F90.9 Attention-deficit hyperactivity disorder, unspecified type; F32.9 Major depressive disorder, single episode, unspecified; G43.909 Migraine, unspecified, not intractable, without status migrainosus; O26.893 Other specified pregnancy related conditions, third trimester; Z67.41 Type O blood, Rh negative; Z3A.39 39 weeks gestation of pregnancy; Z90.49 Acquired absence of other specified parts of digestive tract
CPT/HCPCS: 83036; 85025; 85461; 86850; 86900; 86901; 88307

== ENCOUNTER 2019-11-15 14:14 | Emergency (ER) | payer BC ==
[2019-11-15 14:38] VITALS: BP 175/85; PULSE 85; RESP 16
[2019-11-15] MEDS ORDERED: ACET/COD 300 MG/30 MG STARTER PACK 6 TAB BTL PO STA (14:44)
[2019-11-15] MEDS ORDERED: KETOROLAC 30 MG/ML 1 ML VIAL IM STA (14:44)
[2019-11-15] MEDS ORDERED: CLINDAMYCIN 150 MG CAP PO STA (14:44)
--- NOTE | 2019-11-15 14:53 | ED ---
General Adult HPI - General Chief complaint: Dental/Oral Stated complaint: Dental Time Seen by Provider: 11/15/19 14:28 Source: patient, RN notes reviewed Mode of arrival: ambulatory Limitations: no limitations - History of Present Illness Initial comments: 29-year-old female with a past medical history migraines, gestational diabetes presents to the emergency department for a chief complaint of dental pain. Patient states she has had dental pain in her right front tooth for about a week. Patient states that she saw her dentist first pain and was put on amoxicillin however has been on it now for about 3 days and it is not working. Her dentist told her that if it doesn't work to call and he would give her a different antibiotic that she has called 3 times me has not called her back. Patient states she needs a different antibiotic and something for the pain. Patient denies any difficulty swallowing. Denies any edema under the tongue. Denies fevers or chillsPatient has no other complaints at this time including shortness of breath, chest pain, abdominal pain, nausea or vomiting, headache, or visual changes. - Related Data Home Medications Medication Instructions Recorded Confirmed Insulin Aspart [NovoLOG] 8 unit SQ AC-TID 04/28/18 05/20/18 Insulin Glargine,Hum.rec.anlog 36 unit SQ 0930 04/28/18 05/20/18 [Basaglar Kwikpen U-100] Previous Rx's Medication Instructions Recorded Pnv No.95/Ferrous Fum/Folic AC 1 each PO DAILY #90 tablet 09/20/17 [ Multivitamin Tablet] Clindamycin [Cleocin] 450 mg PO Q8H 7 Days #63 cap 11/15/19 Allergies Allergy/AdvReac Type Severity Reaction Status Date / Time No Known Allergies Allergy Verified 05/20/18 06:17 Review of Systems ROS Statement: Those systems with pertinent positive or pertinent negative responses have been documented in the HPI. ROS Other: All systems not noted in ROS Statement are negative. Past Medical History Past Medical History: No Reported History Additional Past Medical History / Comment(s): migraines, gestational diabetes 2018 History of Any Multi-Drug Resistant Organisms: None Reported Past Surgical History: Tonsillectomy Additional Past Surgical History / Comment(s): carpal tunnel repair Past Anesthesia/Blood Transfusion Reactions: No Reported Reaction Past Psychological History: ADD/ADHD, Depression Smoking Status: Current every day smoker Past Alcohol Use History: None Reported Past Drug Use History: None Reported - Past Family History Mother Family Medical History: No Reported History General Exam Limitations: no limitations General appearance: alert, in no apparent distress Head exam: Present: atraumatic, normocephalic, normal inspection Eye exam: Present: normal appearance, PERRL, EOMI. Absent: scleral icterus, conjunctival injection, periorbital swelling ENT exam: Present: normal exam, mucous membranes moist, TM's normal bilaterally, normal external ear exam. Absent: normal oropharynx (Tenderness to the right front tooth. There is no abscess with visualization or palpation of the gum line. no sublingual edema.) Neck exam: Present: normal inspection, full ROM. Absent: tenderness, meningismus, lymphadenopathy Respiratory exam: Present: normal lung sounds bilaterally. Absent: respiratory distress, wheezes, rales, rhonchi, stridor Cardiovascular Exam: Present: regular rate, normal rhythm, normal heart sounds. Absent: systolic murmur, diastolic murmur, rubs, gallop, clicks GI/Abdominal exam: Present: soft, normal bowel sounds. Absent: distended, tenderness, guarding, rebound, rigid Neurological exam: Present: alert Psychiatric exam: Present: normal affect, normal mood Course Vital Signs 11/15/19 14:36 Pulse Rate 85 Respiratory 16 Rate Blood Pressure 175/85 O2 Sat by Pulse 99 Oximetry Medical Decision Making - Medical Decision Making Patient was given clindamycin instead of amoxicillin. She was given a dose here. She was also given IM Toradol, denies chance of . She will be given Tylenol 3 for home. She will continue to take Motrin while taking Tylenol 3. She'll follow-up with her dentist. She'll return here for any worsening symptoms. Disposition Clinical Impression: Tooth pain Disposition: HOME SELF-CARE Condition: Good Instructions (If sedation given, give patient instructions): Toothache (ED) Additional Instructions: Please take antibiotic as directed. Discontinue amoxicillin. Please follow-up with your dentist on Sunday. Take Motrin for pain. If pain is severe take Tylenol 3. Do not [address] or operate machinery while taking Tylenol 3. Prescriptions: Clindamycin [Cleocin] 450 mg PO Q8H 7 Days #63 cap Is patient prescribed a controlled substance at d/c from ED?: No Referrals: Tj Samuels DO [Primary Care Provider] - 1-2 days Time of Disposition: 14:51
[2019-11-15 15:04] VITALS: TEMP 98.8
== END 2019-11-15 15:05 | disposition home or self-care (01) ==
LOC: EC 14:14
DX: K08.89 Other specified disorders of teeth and supporting structures (principal); F17.200 Nicotine dependence, unspecified, uncomplicated
CPT/HCPCS: 99282; J1885

== ENCOUNTER 2019-12-17 14:54 | Emergency (ER) | payer BC ==
[2019-12-17] MEDS ORDERED: DEXAMETHASONE SOD PHOSPHATE 10 MG/ML 1 ML VIAL IV STA (15:11)
[2019-12-17] MEDS ORDERED: IPRATROPIUM 0.5 MG/2.5 ML NEBU INHALATION STA (15:11)
[2019-12-17] MEDS ORDERED: SODIUM CHLORIDE 0.9% 1,000 ML IV STA (15:11)
[2019-12-17] MEDS ORDERED: ALBUTEROL NEBULIZED 2.5 MG/3 ML INHALATION STA (15:11)
--- NOTE | 2019-12-17 15:17 | ED ---
General Adult HPI - General Chief complaint: Shortness of Breath Stated complaint: short of breath, Tired, Cough Time Seen by Provider: 12/17/19 15:02 Source: patient Mode of arrival: wheelchair Limitations: no limitations - History of Present Illness Initial comments: Dictation was produced using [employer] dictation software. please excuse any gramma tical, word or spelling errors. This patient was cared for during a federal and state declared state of emergency secondary to Covid 19 Chief Complaint: 29-year-old female presents with nonproductive cough History of Present Illness:-year-old female with a last 3-4 days she's been feel ing under the weather. Her symptoms really escalated over the last 12-24 hours. Patient states she's been suffering from a nonproductive cough and shortness of breath. Patient has any chronic respiratory diseases. Denies history of asthma or COPD. Patient is a regular smoker and marijuana smoker. States that she has not had any marijuana smoke in the last 3-4 days. Patient has any fever, chills or night sweats. She does not have any constitutional symptoms. Denies fever. Patient states she feels short of breath. She has no pain complaints. She denies any overt contacts with other individuals with similar symptoms. No known Covid 19 exposures The ROS documented in this emergency department record has been reviewed and confirmed by me. Those systems with pertinent positive or negative responses have been documented in the HPI. All other systems are other negative and/or no ncontributory. PHYSICAL EXAM: General Impression: Alert and oriented x3, not in acute distress secondary to coughing HEENT: Normocephalic atraumatic, extra-ocular movements intact, pupils equal and reactive to light bilaterally, mucous membranes moist, no oropharyngeal erythema Cardiovascular: Heart regular rate and rhythm Chest: Able to complete full sentences, no retractions, no tachypnea, diffuse wheezing with auscultation to the lungs Abdomen: abdomen soft, non-tender, non-distended, no organomegaly Musculoskeletal: Pulses present and equal in all extremities, no peripheral edema Motor: no focal deficits noted Neurological: CN II-XII grossly intact, no focal motor or sensory deficits noted Skin: Intact with no visualized rashes Psych: Normal affect and mood ED course: 29-year-old female presents with acute infectious respiratory symptoms aggressively increasing over the last 24 hours all signs upon arrival are within acceptable limits. Physical examination shows an obese female in mild respiratory distress. She is persistently coughing and has diffuse end expiratory wheezing on auscultation of the lungs. She denies any history of chronic lung diseases. Laboratory evaluation obtained. CBC, metabolic panel, urine hCG is negative. Chest x-ray is nonacute. Patient given pretreatment steroids and reevaluated after 2 hours ER observation. She's feels well. Clinical presentation consistent with acute bronchitis. Patient prescription for albuterol inhaler, Medrol Dosepak, Tessalon Perles and Zithromax pack. Patient told to follow up with her primary care physician. Patient agreed with this physician. Return parameters discussed. EKG interpretation: Ventricular rate 80, normal sinus rhythm,. Interval 146, QRS 100, QTC 426. No PA prolongation, no QTC prolongation, no ST or T-wave changes noted. . Overall, this EKG is unremarkable - Related Data Home Medications Medication Instructions Recorded Confirmed Insulin Aspart [NovoLOG] 8 unit SQ AC-TID 04/28/18 05/20/18 Insulin Glargine,Hum.rec.anlog 36 unit SQ 0930 04/28/18 05/20/18 [Basaglar Kwikpen U-100] Previous Rx's Medication Instructions Recorded Pnv No.95/Ferrous Fum/Folic AC 1 each PO DAILY #90 tablet 09/20/17 [ Multivitamin Tablet] Clindamycin [Cleocin] 450 mg PO Q8H 7 Days #63 cap 11/15/19 Albuterol Sulfate [Proair Hfa] 1 - 2 puff INHALATION Q6HR PRN #1 12/17/19 inhaler Azithromycin [Zithromax Z-pack] 0 mg PO DIRECTED #6 tab 12/17/19 Benzonatate [Tessalon Perles] 100 mg PO TID PRN #12 cap 12/17/19 methylPREDNISolone [Medrol Dose 4 mg PO DIRECTED #1 pack 12/17/19 Pack] Allergies Allergy/AdvReac Type Severity Reaction Status Date / Time No Known Allergies Allergy Verified 12/17/19 15:00 Review of Systems ROS Statement: Those systems with pertinent positive or pertinent negative responses have been documented in the HPI. ROS Other: All systems not noted in ROS Statement are negative. Past Medical History Past Medical History: No Reported History Additional Past Medical History / Comment(s): migraines, gestational diabetes 2018 History of Any Multi-Drug Resistant Organisms: None Reported Past Surgical History: Tonsillectomy Additional Past Surgical History / Comment(s): carpal tunnel repair Past Anesthesia/Blood Transfusion Reactions: No Reported Reaction Past Psychological History: ADD/ADHD, Depression Smoking Status: Current every day smoker Past Alcohol Use History: Rare Past Drug Use History: Marijuana - Past Family History Mother Family Medical History: No Reported History General Exam Limitations: no limitations Course Vital Signs 12/17/19 12/17/19 12/17/19 14:57 15:19 16:09 Temperature 98.4 F Pulse Rate 83 69 Respiratory 24 22 Rate Blood Pressure 152/100 O2 Sat by Pulse 98 Oximetry 12/17/19 16:40 Temperature Pulse Rate 94 Respiratory Rate Blood Pressure O2 Sat by Pulse Oximetry Medical Decision Making - Lab Data Result diagrams: 12/17/19 15:29 12/17/19 15:29 Lab Results 12/17/19 12/17/19 12/17/19 Range/Units 15:29 15:29 15:29 WBC 10.5 (3.8-10.6) k/uL RBC 4.56 (3.80-5.40) m/uL Hgb 13.1 (11.4-16.0) gm/dL Hct 39.5 (34.0-46.0) % MCV 86.7 (80.0-100.0) fL MCH 28.8 (25.0-35.0) pg MCHC 33.2 (31.0-37.0) g/dL RDW 13.2 (11.5-15.5) % Plt Count 251 (150-450) k/uL Neutrophils % 72 % Lymphocytes % 18 % Monocytes % 5 % Eosinophils % 3 % Basophils % 1 % Neutrophils # 7.6 (1.3-7.7) k/uL Lymphocytes # 1.8 (1.0-4.8) k/uL Monocytes # 0.5 (0-1.0) k/uL Eosinophils # 0.3 (0-0.7) k/uL Basophils # 0.1 (0-0.2) k/uL Sodium 137 (137-145) mmol/L Potassium (3.5-5.1) mmol/L Chloride 110 H (98-107) mmol/L Carbon Dioxide 21 L (22-30) mmol/L Anion Gap 6 mmol/L BUN 13 (7-17) mg/dL Creatinine 0.59 (0.52-1.04) mg/dL Est GFR (CKD-EPI)AfAm >90 (>60 ml/min/1.73 sqM) Est GFR (CKD-EPI)NonAf >90 (>60 ml/min/1.73 sqM) Glucose 115 H (74-99) mg/dL Plasma Lactic Acid Marquez 1.1 (0.7-2.0) mmol/L Calcium 8.8 (8.4-10.2) mg/dL NT-Pro-B Natriuret Pep pg/mL Urine HCG, Qual (Not Detectd) 12/17/19 12/17/19 Range/Units 15:29 16:59 WBC (3.8-10.6) k/uL RBC (3.80-5.40) m/uL Hgb (11.4-16.0) gm/dL Hct (34.0-46.0) % MCV (80.0-100.0) fL MCH (25.0-35.0) pg MCHC (31.0-37.0) g/dL RDW (11.5-15.5) % Plt Count (150-450) k/uL Neutrophils % % Lymphocytes % % Monocytes % % Eosinophils % % Basophils % % Neutrophils # (1.3-7.7) k/uL Lymphocytes # (1.0-4.8) k/uL Monocytes # (0-1.0) k/uL Eosinophils # (0-0.7) k/uL Basophils # (0-0.2) k/uL Sodium (137-145) mmol/L Potassium (3.5-5.1) mmol/L Chloride (98-107) mmol/L Carbon Dioxide (22-30) mmol/L Anion Gap mmol/L BUN (7-17) mg/dL Creatinine (0.52-1.04) mg/dL Est GFR (CKD-EPI)AfAm (>60 ml/min/1.73 sqM) Est GFR (CKD-EPI)NonAf (>60 ml/min/1.73 sqM) Glucose (74-99) mg/dL Plasma Lactic Acid Marquez (0.7-2.0) mmol/L Calcium (8.4-10.2) mg/dL NT-Pro-B Natriuret Pep 53 pg/mL Urine HCG, Qual Not Detected (Not Detectd) Disposition Clinical Impression: Bronchitis Disposition: HOME SELF-CARE Condition: Good Instructions (If sedation given, give patient instructions): Acute Bronchitis (ED) Additional Instructions: Today were diagnosed with acute bronchitis. You are given multiple medications. Please take his medications as prescribed. Please follow-up with your primary care physician for outpatient management of acute bronchitis. Prescriptions: methylPREDNISolone [Medrol Dose Pack] 4 mg PO DIRECTED #1 pack Albuterol Sulfate [Proair Hfa] 1 - 2 puff INHALATION Q6HR PRN #1 inhaler PRN Reason: Dyspnea Benzonatate [Tessalon Perles] 100 mg PO TID PRN #12 cap PRN Reason: Cough Azithromycin [Zithromax Z-pack] 0 mg PO DIRECTED #6 tab Is patient prescribed a controlled substance at d/c from ED?: No Referrals: Tj Samuels DO [Primary Care Provider] - 1-2 days Time of Disposition: 17:18
[2019-12-17 15:41] LABS: Basophils # (A) 0.1 k/uL (0-0.2); Basophils % (A) 1 %; Eosinophils # (A) 0.3 k/uL (0-0.7); Eosinophils % (A) 3 %; HCT 39.5 % (34.0-46.0); HGB 13.1 gm/dL (11.4-16.0); Lymphocytes # (A) 1.8 k/uL (1.0-4.8); Lymphocytes % (A) 18 %; MCH 28.8 pg (25.0-35.0); MCHC 33.2 g/dL (31.0-37.0); MCV 86.7 fL (80.0-100.0); Mean Platelet Volume 8.4; Monocytes # (A) 0.5 k/uL (0-1.0); Monocytes % (A) 5 %; Neutrophils # (A) 7.6 k/uL (1.3-7.7); Neutrophils % (A) 72 %; Platelet Count 251 k/uL (150-450); RBC 4.56 m/uL (3.80-5.40); RDW 13.2 % (11.5-15.5); WBC 10.5 k/uL (3.8-10.6)
[2019-12-17 15:53] LABS: African American GFR (CKD) >90 (>60 ml/min/1.73 sqM); Anion Gap 6 mmol/L; Blood Urea Nitrogen 13 mg/dL (7-17); Calcium 8.8 mg/dL (8.4-10.2); Carbon Dioxide 21 mmol/L (22-30); Chloride 110 mmol/L (98-107); Glucose 115 mg/dL (74-99); Non-African American GFR(CKD) >90 (>60 ml/min/1.73 sqM); Sodium 137 mmol/L (137-145)
--- NOTE | 2019-12-17 16:07 | XR ---
EXAMINATION TYPE: XR chest 1V portable DATE OF EXAM: 12/17/2019 COMPARISON: Prior chest 01/29/2012 HISTORY: Cough and shortness of breath TECHNIQUE: Single frontal view of the chest is obtained. FINDINGS: Patient is rotated. Exam somewhat limited by technique. There are overlying leads. There is no focal air space opacity, pleural effusion, or pneumothorax seen. The cardiac silhouette size is within normal limits. The osseous structures are intact. IMPRESSION: No acute process is evident, poor penetration left lung base, follow-up as indicated.
[2019-12-17 17:17] VITALS: BP 125/69; PULSE 91; RESP 20; TEMP 98.2
== END 2019-12-17 17:26 | disposition home or self-care (01) ==
LOC: EC 14:54
DX: J40 Bronchitis, not specified as acute or chronic (principal); F17.200 Nicotine dependence, unspecified, uncomplicated; Z79.4 Long term (current) use of insulin; Z32.02 Encounter for pregnancy test, result negative; E66.9 Obesity, unspecified; Z68.41 Body mass index [BMI] 40.0-44.9, adult; Z20.828 Contact with and (suspected) exposure to other viral communicable diseases
CPT/HCPCS: 36415; 94644; 93005; 83880; 80048; 83605; 85025; 81025; 71045; 99285; 96374; 96361 ×2; U0003; J1100

== ENCOUNTER 2019-12-23 18:16 | Emergency (ER) | payer BC ==
[2019-12-23 18:37] VITALS: PULSE 80; RESP 16; TEMP 98.2
[2019-12-23] MEDS ORDERED: TOPICAL SKIN ADHESIVE 1 EACH AMP TOPICAL ONE (18:52)
--- NOTE | 2019-12-23 18:59 | ED ---
General Adult HPI - General Chief complaint: Wound/Laceration Stated complaint: Hand injury Time Seen by Provider: 12/23/19 18:40 Source: patient, RN notes reviewed Mode of arrival: ambulatory Limitations: no limitations - History of Present Illness Initial comments: Patient is a pleasant 29-year-old female presenting to the emergency Department with an injury. Incident occurred prior to arrival. Patient was helping another person move would. Patient fell onto a wood pile and struck her right hand. Patient has moderate discomfort, severe with movement mostly of the proximal and mid ulnar hand. Pain increases with range of motion. Patient is right-hand dominant. Last tetanus immunization was less than 5 years ago. - Related Data Home Medications Medication Instructions Recorded Confirmed Insulin Aspart [NovoLOG] 8 unit SQ AC-TID 04/28/18 05/20/18 Insulin Glargine,Hum.rec.anlog 36 unit SQ 0930 04/28/18 05/20/18 [Basaglar Kwikpen U-100] Previous Rx's Medication Instructions Recorded Pnv No.95/Ferrous Fum/Folic AC 1 each PO DAILY #90 tablet 09/20/17 [ Multivitamin Tablet] Clindamycin [Cleocin] 450 mg PO Q8H 7 Days #63 cap 11/15/19 Albuterol Sulfate [Proair Hfa] 1 - 2 puff INHALATION Q6HR PRN #1 12/17/19 inhaler Azithromycin [Zithromax Z-pack] 0 mg PO DIRECTED #6 tab 12/17/19 Benzonatate [Tessalon Perles] 100 mg PO TID PRN #12 cap 12/17/19 methylPREDNISolone [Medrol Dose 4 mg PO DIRECTED #1 pack 12/17/19 Pack] Allergies Allergy/AdvReac Type Severity Reaction Status Date / Time No Known Allergies Allergy Verified 12/17/19 15:00 Review of Systems ROS Statement: Those systems with pertinent positive or pertinent negative responses have been documented in the HPI. ROS Other: All systems not noted in ROS Statement are negative. Constitutional: Denies: fever Eyes: Denies: eye pain ENT: Denies: ear pain Respiratory: Denies: cough Cardiovascular: Denies: chest pain Endocrine: Denies: fatigue Gastrointestinal: Denies: abdominal pain Genitourinary: Denies: dysuria Musculoskeletal: Denies: back pain Skin: Reports: as per HPI, other (Multiple right hand abrasions. Laceration near the MCP of the ring finger) Neurological: Denies: headache Past Medical History Past Medical History: No Reported History Additional Past Medical History / Comment(s): migraines, gestational diabetes 2018 History of Any Multi-Drug Resistant Organisms: None Reported Past Surgical History: Tonsillectomy Additional Past Surgical History / Comment(s): carpal tunnel repair Past Anesthesia/Blood Transfusion Reactions: No Reported Reaction Past Psychological History: ADD/ADHD, Depression Smoking Status: Current every day smoker Past Alcohol Use History: Rare Past Drug Use History: Marijuana - Past Family History Mother Family Medical History: No Reported History General Exam Limitations: no limitations General appearance: alert, in no apparent distress Head exam: Present: normocephalic Eye exam: Present: normal appearance Neck exam: Present: normal inspection. Absent: tenderness Respiratory exam: Present: normal lung sounds bilaterally Cardiovascular Exam: Present: regular rate, normal rhythm GI/Abdominal exam: Present: soft. Absent: tenderness Extremities exam: Present: other (Tenderness right hand near the fourth and fifth metacarpal carpals. Small laceration MCP dorsally of the fourth/ring finger) Back exam: Present: normal inspection. Absent: tenderness Neurological exam: Present: alert. Absent: motor sensory deficit Psychiatric exam: Present: normal affect, normal mood Skin exam: Present: abrasion Course Vital Signs 12/23/19 18:35 Temperature 98.2 F Pulse Rate 80 Respiratory 16 Rate Blood Pressure 166/100 O2 Sat by Pulse 98 Oximetry Procedures - Laceration Laceration #1 Consent Obtained: verbal consent Indication: laceration Site: hand Size (cm): 2 Description: avulsion Depth: simple, single layer Pre-repair: wound explored, irrigated extensively Type of Sutures: other (Closed with Dermabond) Patient Tolerated Procedure: well, no complications - Orthopedic Splinting/Casting Injury #1 Side: right Upper Extremity Injury Location: short arm, wrist, hand Upper Extremity Immobilizer: volar splint Medical Decision Making - Medical Decision Making Laceration is superficial in distal to the fracture and this is not considered an open fracture. - Radiology Data Radiology results: image reviewed (X-ray shows comminuted fracture base of the fifth metacarpal without significant displacement) Disposition Clinical Impression: Hand fracture Disposition: HOME SELF-CARE Condition: Stable Instructions (If sedation given, give patient instructions): Hand Fracture (ED), Skin Adhesive Care (ED) Additional Instructions: Please follow-up with orthopedics in the next couple days for recheck. Return for increased pain, swelling, hand problems, worsening or changing symptoms or other concerns. Is patient prescribed a controlled substance at d/c from ED?: No Referrals: Tj Samuels DO [Primary Care Provider] - 1-2 days Jovany Nolan DO [Medical Doctor] - 1-2 days Time of Disposition: 19:35
--- NOTE | 2019-12-23 19:24 | XR ---
EXAMINATION TYPE: XR hand complete RT DATE OF EXAM: 12/23/2019 COMPARISON: NONE HISTORY: Trauma. Pain TECHNIQUE: 3 views FINDINGS: There is comminuted intra-articular fracture of the base of the fifth metacarpal. There is no dislocation. The fingers appear intact. Carpal bones appear intact. IMPRESSION: Comminuted fracture base of the fifth metacarpal without significant displacement.
[2019-12-23] MEDS ORDERED: ACET/COD 300 MG/30 MG STARTER PACK 6 TAB BTL PO STA (19:35)
[2019-12-23] MEDS ORDERED: KETOROLAC 60 MG/2 ML VIAL IM STA (19:35)
[2019-12-23 19:52] VITALS: BP 131/101
== END 2019-12-23 19:51 | disposition home or self-care (01) ==
LOC: EC 18:16
DX: S62.316B Displaced fracture of base of fifth metacarpal bone, right hand, initial encounter for open fracture (principal); F17.200 Nicotine dependence, unspecified, uncomplicated; Z79.4 Long term (current) use of insulin; W18.09XA Striking against other object with subsequent fall, initial encounter
CPT/HCPCS: 73130; 99283; 12001; 29125; 96372; J1885

== ENCOUNTER → 2020-03-15 | Outpatient (CLI) | payer BC ==
--- NOTE | 2020-03-15 12:15 | XR ---
Right foot HISTORY: M 79.671, pain 3 views of the right foot Bone mineralization, joint spaces and alignment are maintained. No fracture or dislocation. There is a small plantar calcaneal spur. IMPRESSION: No acute abnormality. Plantar calcaneal spur.
== END | disposition home or self-care (01) ==
LOC: LABWHC1 10:48
PROVIDERS: ATTEND Family Medicine
DX: M77.31 Calcaneal spur, right foot (principal); M79.671 Pain in right foot

== ENCOUNTER 2020-10-08 12:34 | Emergency (ER) | payer BC ==
[2020-10-08 13:05] VITALS: BP 143/95; PULSE 78; RESP 18; TEMP 97.8
--- NOTE | 2020-10-08 13:44 | ED ---
General Adult HPI - General Chief complaint: Back Pain/Injury Stated complaint: Back PAin Time Seen by Provider: 10/08/20 13:34 Source: patient, RN notes reviewed, old records reviewed Mode of arrival: ambulatory Limitations: no limitations - History of Present Illness Initial comments: 30-year-old female with acute on chronic back pain. Patient states she had done some housework on Sunday and on Sunday she noticed some worsening low back pain. She denies a specific injury at that time. She believes was related to overuse. No fever. No saddle anesthesia. No bowel or bladder incontinence. She has a history of chronic back pain and has had MRI in the past. She states she has an appointment with her primary care physician but it isn't for several weeks. She has never seen a back specialist in the past. - Related Data Home Medications Medication Instructions Recorded Confirmed Insulin Aspart [NovoLOG] 8 unit SQ AC-TID 04/28/18 05/20/18 Insulin Glargine,Hum.rec.anlog 36 unit SQ 0930 04/28/18 05/20/18 [Basaglar Kwikpen U-100] Previous Rx's Medication Instructions Recorded Pnv No.95/Ferrous Fum/Folic AC 1 each PO DAILY #90 tablet 09/20/17 [ Multivitamin Tablet] Clindamycin [Cleocin] 450 mg PO Q8H 7 Days #63 cap 11/15/19 Albuterol Sulfate [Proair Hfa] 1 - 2 puff INHALATION Q6HR PRN #1 12/17/19 inhaler Azithromycin [Zithromax Z-pack] 0 mg PO DIRECTED #6 tab 12/17/19 Benzonatate [Tessalon Perles] 100 mg PO TID PRN #12 cap 12/17/19 methylPREDNISolone [Medrol Dose 4 mg PO DIRECTED #1 pack 12/17/19 Pack] HYDROcodone/APAP 5-325MG [[place] 1 tab PO Q8HR PRN #9 tab 10/08/20 5-325] Allergies Allergy/AdvReac Type Severity Reaction Status Date / Time No Known Allergies Allergy Verified 10/08/20 13:05 Review of Systems ROS Statement: Those systems with pertinent positive or pertinent negative responses have been documented in the HPI. ROS Other: All systems not noted in ROS Statement are negative. Past Medical History Past Medical History: No Reported History Additional Past Medical History / Comment(s): migraines, gestational diabetes 2018 History of Any Multi-Drug Resistant Organisms: None Reported Past Surgical History: Tonsillectomy Additional Past Surgical History / Comment(s): carpal tunnel repair Past Anesthesia/Blood Transfusion Reactions: No Reported Reaction Past Psychological History: ADD/ADHD, Depression Smoking Status: Current every day smoker Past Alcohol Use History: Rare Past Drug Use History: Marijuana - Past Family History Mother Family Medical History: No Reported History General Exam Limitations: no limitations General appearance: alert, in no apparent distress Head exam: Present: atraumatic, normocephalic Eye exam: Present: normal appearance, PERRL ENT exam: Present: normal exam Neck exam: Present: normal inspection. Absent: tenderness, meningismus Respiratory exam: Present: normal lung sounds bilaterally. Absent: respiratory distress, wheezes Cardiovascular Exam: Present: regular rate, normal rhythm GI/Abdominal exam: Present: soft. Absent: distended, tenderness, guarding, rebound Extremities exam: Present: normal inspection, normal capillary refill. Absent: pedal edema Back exam: Present: paraspinal tenderness (Lumbosacral) Neurological exam: Present: alert, oriented X3, CN II-XII intact. Absent: motor sensory deficit Psychiatric exam: Present: normal affect, normal mood Skin exam: Present: warm, dry, intact. Absent: cyanosis, diaphoretic Course Vital Signs 10/08/20 13:02 Temperature 97.8 F Pulse Rate 78 Respiratory 18 Rate Blood Pressure 143/95 O2 Sat by Pulse 99 Oximetry Medical Decision Making - Medical Decision Making Patient currently on Flexeril prescribed by her primary care physician and 800 mg of Motrin. She will continue his medication. She is prescribed 3 days of [place] for additional pain relief. She is also given a orthopedic surgeon follow-up as needed if symptoms persist. She will return with any worsening or changing symptoms. Disposition Clinical Impression: Strain of lumbar region, Mechanical back pain Disposition: HOME SELF-CARE Condition: Good Instructions (If sedation given, give patient instructions): Acute Low Back Pain (ED) Prescriptions: HYDROcodone/APAP 5-325MG [[place] 5-325] 1 tab PO Q8HR PRN #9 tab PRN Reason: Severe Pain Is patient prescribed a controlled substance at d/c from ED?: No Referrals: Tj Samuels DO [Primary Care Provider] - 1-2 days Derek Mancia DO [Doctor of Osteopathic Medicine] - 1-2 days Time of Disposition: 13:43
== END 2020-10-08 13:52 | disposition home or self-care (01) ==
LOC: EC 12:34
DX: S39.012A Strain of muscle, fascia and tendon of lower back, initial encounter (principal); G43.909 Migraine, unspecified, not intractable, without status migrainosus; F32.9 Major depressive disorder, single episode, unspecified; F90.9 Attention-deficit hyperactivity disorder, unspecified type; F12.90 Cannabis use, unspecified, uncomplicated; F17.200 Nicotine dependence, unspecified, uncomplicated; Z79.52 Long term (current) use of systemic steroids; X58.XXXA Exposure to other specified factors, initial encounter; Y92.009 Unspecified place in unspecified non-institutional (private) residence as the place of occurrence of the external cause
CPT/HCPCS: 99283

== ENCOUNTER → 2021-09-30 | Outpatient (CLI) | payer BC ==
--- NOTE | 2021-09-30 07:51 | US ---
EXAMINATION TYPE: US abdomen limited DATE OF EXAM: 09/30/2021 COMPARISON: NONE CLINICAL HISTORY: MASS R19.00 PELVIC SWELL. Morbidly obese patient feels lump to the left of her umbilicus. No hernia or mass appreciated by ultrasound. IMPRESSION: Negative
--- NOTE | 2021-09-30 07:54 | US ---
EXAMINATION TYPE: US mass soft tissue chest/back DATE OF EXAM: 09/30/2021 COMPARISON: NONE CLINICAL HISTORY: R22.2 LOCALIZED SWELLING. Obvious lump seen on left upper back on morbidly obese patient. Unable to appreciate mass on ultrasound. IMPRESSION: No discrete mass seen.
== END | disposition home or self-care (01) ==
LOC: RADUSWWP 06:57
PROVIDERS: ATTEND Surgery Plastic and Reconstructive Surgery
DX: R22.2 Localized swelling, mass and lump, trunk (principal); E66.01 Morbid (severe) obesity due to excess calories
CPT/HCPCS: 76705

== ENCOUNTER → 2023-03-20 | Outpatient (CLI) | payer BC ==
--- NOTE | 2023-03-20 13:59 | US ---
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 Area keeps getting bigger per patient. Evaluate for lipoma per order. TECHNIQUE: FINDINGS: Scanned patient's lump/area of concern. The patient does appear to have an elevated area/l arge lump extending across the upper left side of her back, however no abnormalities were seen by ult rasound at this time. No discrete masses or cysts. MRI could be performed if additional evaluation would be of benefit. IMPRESSION: 1. Negative ultrasound of the area of concern.
== END | disposition home or self-care (01) ==
LOC: RADUSWWP 12:55
PROVIDERS: ATTEND Surgery
DX: D17.1 Benign lipomatous neoplasm of skin and subcutaneous tissue of trunk (principal)

== ENCOUNTER → 2023-04-23 | Outpatient (CLI) | payer BC | END | disposition home or self-care (01) | LOC: LABWHC1 09:23 | PROVIDERS: ATTEND Family Medicine | DX: R63.1 Polydipsia (principal); R35.0 Frequency of micturition | CPT/HCPCS: 36415; 83930; 83935; 84588 ==

== ENCOUNTER 2024-03-14 18:52 | Emergency (ER) | payer OTHER, BC ==
[2024-03-14 19:24] VITALS: RESP 18; TEMP 98.4
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
[2024-03-14] MEDS: ACETAMINOPHEN TAB 500 MG TAB PO STA (20:49)
[2024-03-14] MEDS: KETOROLAC 15 MG/ML 1 ML VIAL IM STA (20:52)
[2024-03-14] MEDS: ACET/COD 300 MG/30 MG STARTER PACK 6 TAB BTL PO STA (20:54)
[2024-03-14 21:12] VITALS: BP 122/78; PULSE 87
== END 2024-03-14 21:12 | disposition home or self-care (01) ==
LOC: EC 18:52
CPT/HCPCS: 70450; 71046; 99284

== ENCOUNTER 2024-09-28 01:49 | Emergency (ER) | payer BC ==
[2024-09-28 02:01] VITALS: BP 132/89; PULSE 78; RESP 16; TEMP 97.8
--- NOTE | 2024-09-28 02:33 | ED ---
ENT HPI - General Chief complaint: Dental/Oral Stated complaint: Dental pain Time Seen by Provider: 09/28/24 02:01 Source: patient, RN notes reviewed Mode of arrival: ambulatory Limitations: no limitations - History of Present Illness Initial comments: 34-year-old female presenting to the emergency department with complaints of left mandibular dental pain that has been worsening over the past 2 days. Patient states that the pain is gotten more severe this evening. She attempted to take Motrin with minimal relief in symptoms. She denies difficulty breathing, swallowing, fevers, chills. - Related Data Home Medications Medication Instructions Recorded Confirmed Insulin Aspart [NovoLOG] 8 unit SQ AC-TID 04/28/18 05/20/18 Insulin Glargine,Hum.rec.anlog 36 unit SQ 0930 04/28/18 05/20/18 [Basaglar Kwikpen U-100] Previous Rx's Medication Instructions Recorded Pnv No.95/Ferrous Fum/Folic AC 1 each PO DAILY #90 tablet 09/20/17 [ Multivitamin Tablet] Clindamycin [Cleocin] 450 mg PO Q8H 7 Days #63 cap 11/15/19 Albuterol Sulfate [Proair Hfa] 1 - 2 puff INHALATION Q6HR PRN #1 12/17/19 inhaler Azithromycin [Zithromax Z-pack] 0 mg PO DIRECTED #6 tab 12/17/19 Benzonatate [Tessalon Perles] 100 mg PO TID PRN #12 cap 12/17/19 methylPREDNISolone [Medrol Dose 4 mg PO DIRECTED #1 pack 12/17/19 Pack] HYDROcodone/APAP 5-325MG [[place] 1 tab PO Q8HR PRN #9 tab 10/08/20 5-325] Amoxicillin 875 mg PO Q12HR #20 tablet 09/28/24 Ibuprofen [Motrin] 800 mg PO Q8HR PRN #30 tab 09/28/24 Allergies Allergy/AdvReac Type Severity Reaction Status Date / Time No Known Allergies Allergy Verified 09/28/24 01:58 Review of Systems ROS Statement: Those systems with pertinent positive or pertinent negative responses have been documented in the HPI. ROS Other: All systems not noted in ROS Statement are negative. Past Medical History Past Medical History: No Reported History Additional Past Medical History / Comment(s): migraines, gestational diabetes 2018 History of Any Multi-Drug Resistant Organisms: None Reported Past Surgical History: Cholecystectomy, Tonsillectomy Additional Past Surgical History / Comment(s): carpal tunnel repair Past Anesthesia/Blood Transfusion Reactions: No Reported Reaction Past Psychological History: ADD/ADHD, Depression Smoking Status: Vaper Past Alcohol Use History: Rare Past Drug Use History: None Reported - Past Family History Mother Family Medical History: No Reported History General Exam Limitations: no limitations General appearance: alert, in no apparent distress Eye exam: Present: normal appearance, PERRL, EOMI. Absent: scleral icterus, conjunctival injection, periorbital swelling Expanded Mouth exam: Present: normal external inspection Teeth exam: Present: dental caries, dental tenderness # Throat exam: normal inspection Neck exam: Present: normal inspection. Absent: tenderness, meningismus, lymphadenopathy Respiratory exam: Present: normal lung sounds bilaterally. Absent: respiratory distress, wheezes, rales, rhonchi, stridor Cardiovascular Exam: Present: regular rate, normal rhythm, normal heart sounds. Absent: systolic murmur, diastolic murmur, rubs, gallop, clicks GI/Abdominal exam: Present: soft, normal bowel sounds. Absent: distended, tenderness, guarding, rebound, rigid Course Vital Signs 09/28/24 01:59 Temperature 97.8 F Pulse Rate 78 Respiratory 16 Rate Blood Pressure 132/89 O2 Sat by Pulse 100 Oximetry Medical Decision Making - Medical Decision Making Was pt. sent in by a medical professional or institution ([facility], TECHNICAL ARTIST, urgent care, hospital, or custodial...) When possible be specific @ -No Did you speak to anyone other than the patient for history (EMS, parent, family, police, friend...)? What history was obtained from this source @ -No Did you review nursing and triage notes (agree or disagree)? Why? @ -I reviewed and agree with nursing and triage notes Were old charts reviewed (outside hosp., previous admission, EMS record, old EKG, old radiological studies, urgent care reports/EKG's, custodial records)? Report findings @ -No old charts were reviewed Differential Diagnosis (chest pain, altered mental status, abdominal pain women, abdominal pain men, vaginal bleeding, weakness, fever, dyspnea, syncope, headache, dizziness, GI bleed, back pain, seizure, CVA, palpatations, mental health, musculoskeletal)? @ -Dental caries, pulpitis, gingivitis, this list is not all inclusive EKG interpreted by me (3pts min.). @ -None X-rays interpreted by me (1pt min.). @ -None done CT interpreted by me (1pt min.). @ -None done U/S interpreted by me (1pt. min.). @ -None done What testing was considered but not performed or refused? (CT, X-rays, U/S, labs)? Why? @ -None What meds were considered but not given or refused? Why? @ -None Did you discuss the management of the patient with other professionals (professionals i.e. Dr., PA, TECHNICAL ARTIST, lab, RT, psych nurse, oncology social work, gas operation manager, teacher, public affairs officer, director of casework department)? Give summary @ -No Was smoking cessation discussed for >3mins.? @ -No Was critical care preformed (if so, how long)? @ -No Were there social determinants of health that impacted care today? How? (Homelessness, low income, unemployed, alcoholism, drug addiction, transportation, low edu. Level, literacy, decrease access to med. care, long-term, rehab)? @ -No Was there de-escalation of care discussed even if they declined (Discuss DNR or withdrawal of care, Hospice)? DNR status @ -No What co-morbidities impacted this encounter? (DM, HTN, Smoking, COPD, CAD, Cancer, CVA, ARF, Chemo, Hep., AIDS, mental health diagnosis, sleep apnea, morbid obesity)? @ -None Was patient admitted / discharged? Hospital course, mention meds given and route, prescriptions, significant lab abnormalities, going to OR and other pertinent info. @ -Discharged. 34-year-old female presenting to emergency department with complaints of dental pain. There is a noted fractured tooth where pain is elicited on palpation. No evidence of dental abscess. Vitals are stable and overall patient is well-appearing and nontoxic. Is provided with antibiotics and pain control. Urged follow-up with dentist outpatient. Case discussed with Dr. Sweeney Undiagnosed new problem with uncertain prognosis? @ -No Drug Therapy requiring intensive monitoring for toxicity (Heparin, Nitro, Insulin, Cardizem)? @ -No Were any procedures done? @ -No Diagnosis/symptom? @ -fractured tooth, dental pain Acute, or Chronic, or Acute on Chronic? @ -acute Uncomplicated (without systemic symptoms) or Complicated (systemic symptoms)? @ -uncomplicated Side effects of treatment? @ -No Exacerbation, Progression, or Severe Exacerbation? @ -No Poses a threat to life or bodily function? How? (Chest pain, [place], [place], pneumonia, PE, COPD, DKA, ARF, appy, cholecystitis, CVA, Diverticulitis, Homicidal, Suicidal, threat to staff... and all critical care pts) @ -No Disposition Clinical Impression: Pain, dental Disposition: HOME SELF-CARE Condition: Stable Instructions (If sedation given, give patient instructions): Toothache (ED) Additional Instructions: Please return to the Emergency Department if symptoms worsen or any other concerns. Prescriptions: Amoxicillin 875 mg PO Q12HR #20 tablet Ibuprofen [Motrin] 800 mg PO Q8HR PRN #30 tab PRN Reason: Pain Is patient prescribed a controlled substance at d/c from ED?: No Referrals: Jim Chan MD [Primary Care Provider] - 1-2 days Time of Disposition: 02:33
[2024-09-28] MEDS: Acetaminophen-Codeine 300-30mg TAB PO STA (02:49)
[2024-09-28] MEDS: ACET/COD 300 MG/30 MG STARTER PACK 6 TAB BTL PO STA (02:49)
[2024-09-28] MEDS: AMOXICILLIN 875 MG TAB PO STA (02:57)
== END 2024-09-28 03:00 | disposition home or self-care (01) ==
LOC: EC 01:49
DX: K08.89 Other specified disorders of teeth and supporting structures (principal); F17.290 Nicotine dependence, other tobacco product, uncomplicated
CPT/HCPCS: 99282

== ENCOUNTER 2024-12-18 14:13 | Emergency (ER) | payer BC, OTHER ==
[2024-12-18 14:20] VITALS: BP 158/97; PULSE 72; RESP 18; TEMP 97.9
--- NOTE | 2024-12-18 14:35 | ED ---
General Adult HPI - General Chief complaint: Recheck/Abnormal Lab/Rx Stated complaint: Medication Time Seen by Provider: 12/18/24 14:22 Source: patient, RN notes reviewed Mode of arrival: ambulatory Limitations: no limitations - History of Present Illness Initial comments: Patient is a 34-year-old female presenting to the emergency department with concerns for medication refill. Patient states she was off her insurance. Patient states she is out of Adderall and Ativan and requests refill. Patient went to urgent care however they would not fill them and advised her to come here. Patient states she does not take Ativan frequently however has been more anxious and wanted to take 1 yesterday when she realized she was out. Patient did restart her insurance and will get into see her primary care doctor next month. Patient denies suicidal ideation and does contract for safety. - Related Data Home Medications Medication Instructions Recorded Confirmed Insulin Aspart [NovoLOG] 8 unit SQ AC-TID 04/28/18 05/20/18 Insulin Glargine,Hum.rec.anlog 36 unit SQ 0930 04/28/18 05/20/18 [Basaglar Kwikpen U-100] Previous Rx's Medication Instructions Recorded Pnv No.95/Ferrous Fum/Folic AC 1 each PO DAILY #90 tablet 09/20/17 [ Multivitamin Tablet] Clindamycin [Cleocin] 450 mg PO Q8H 7 Days #63 cap 11/15/19 Albuterol Sulfate [Proair Hfa] 1 - 2 puff INHALATION Q6HR PRN #1 12/17/19 inhaler Azithromycin [Zithromax Z-pack] 0 mg PO DIRECTED #6 tab 12/17/19 Benzonatate [Tessalon Perles] 100 mg PO TID PRN #12 cap 12/17/19 methylPREDNISolone [Medrol Dose 4 mg PO DIRECTED #1 pack 12/17/19 Pack] HYDROcodone/APAP 5-325MG [[place] 1 tab PO Q8HR PRN #9 tab 10/08/20 5-325] Amoxicillin 875 mg PO Q12HR #20 tablet 09/28/24 Ibuprofen [Motrin] 800 mg PO Q8HR PRN #30 tab 09/28/24 Allergies Allergy/AdvReac Type Severity Reaction Status Date / Time No Known Allergies Allergy Verified 12/18/24 14:20 Review of Systems ROS Statement: Those systems with pertinent positive or pertinent negative responses have been documented in the HPI. ROS Other: All systems not noted in ROS Statement are negative. Constitutional: Denies: fever Eyes: Denies: eye pain ENT: Denies: ear pain Respiratory: Denies: dyspnea Cardiovascular: Denies: chest pain Gastrointestinal: Denies: abdominal pain Psychiatric: Reports: as per HPI, anxiety, depression. Denies: suicidal thoughts Past Medical History Past Medical History: No Reported History Additional Past Medical History / Comment(s): migraines, gestational diabetes 2018 History of Any Multi-Drug Resistant Organisms: None Reported Past Surgical History: Cholecystectomy, Tonsillectomy Additional Past Surgical History / Comment(s): carpal tunnel repair Past Anesthesia/Blood Transfusion Reactions: No Reported Reaction Past Psychological History: ADD/ADHD, Depression Smoking Status: Vaper Past Alcohol Use History: Occasional Past Drug Use History: Marijuana - Past Family History Mother Family Medical History: No Reported History General Exam Limitations: no limitations General appearance: alert, in no apparent distress Head exam: Present: normocephalic Eye exam: Present: normal appearance Neck exam: Present: normal inspection Respiratory exam: Present: normal lung sounds bilaterally Cardiovascular Exam: Present: regular rate, normal rhythm GI/Abdominal exam: Present: soft. Absent: tenderness Extremities exam: Present: normal inspection Neurological exam: Present: alert Psychiatric exam: Present: depressed. Absent: suicidal ideation Skin exam: Present: normal color Course Vital Signs 12/18/24 14:15 Temperature 97.9 F Pulse Rate 72 Respiratory 18 Rate Blood Pressure 158/97 O2 Sat by Pulse 100 Oximetry Medical Decision Making - Medical Decision Making Was pt. sent in by a medical professional or institution ([facility], RECLAMATION WORKER, urgent care, hospital, or care home...) When possible be specific @ -Patient states she was at urgent care and they were unable to fill her medications and stated that we might be able to help her Did you speak to anyone other than the patient for history (EMS, parent, family, police, friend...)? What history was obtained from this source @ -No Did you review nursing and triage notes (agree or disagree)? Why? @ -I reviewed and agree with nursing and triage notes Were old charts reviewed (outside hosp., previous admission, EMS record, old EKG, old radiological studies, urgent care reports/EKG's, care home records)? Report findings @ -No old charts were reviewed Differential Diagnosis (chest pain, altered mental status, abdominal pain women, abdominal pain men, vaginal bleeding, weakness, fever, dyspnea, syncope, headache, dizziness, GI bleed, back pain, seizure, CVA, palpatations, mental health, musculoskeletal)? @ -Differential Mental Health Depression, anxiety, bipolar, psychosis, schizophrenia, borderline personality, situational depression, adjustment disorder, behavioral disorder, brain tumor, malingering, substance abuse, encephalopathy, medication reaction, dementia, hypothyroidism, degenerative neurologic disorder, lupus.... This is not meant to be all-inclusive list EKG interpreted by me (3pts min.). @ -As above X-rays interpreted by me (1pt min.). @ -None done CT interpreted by me (1pt min.). @ -None done U/S interpreted by me (1pt. min.). @ -None done What testing was considered but not performed or refused? (CT, X-rays, U/S, labs)? Why? @ -None What meds were considered but not given or refused? Why? @ -None Did you discuss the management of the patient with other professionals (professionals i.e. , PA, RECLAMATION WORKER, lab, RT, psych nurse, social service worker, police patrol officer, teacher, hospital security officer, comp field case manager)? Give summary @ -No Was smoking cessation discussed for >3mins.? @ -No Was critical care preformed (if so, how long)? @ -No Were there social determinants of health that impacted care today? How? (Homelessness, low income, unemployed, alcoholism, drug addiction, transportation, low edu. Level, literacy, decrease access to med. care, [facility], rehab)? @ -No Was there de-escalation of care discussed even if they declined (Discuss DNR or withdrawal of care, Hospice)? DNR status @ -No What co-morbidities impacted this encounter? (DM, HTN, Smoking, COPD, CAD, Cancer, CVA, ARF, Chemo, Hep., AIDS, mental health diagnosis, sleep apnea, morbid obesity)? @ -History of depression and anxiety Was patient admitted / discharged? Hospital course, mention meds given and route, prescriptions, significant lab abnormalities, going to OR and other pertinent info. @ -Patient presents requesting refills of Adderall and Ativan. Patient admits to having depression however denies suicidal ideation. Patient does contract for safety and specifically references her daughter as a reason not to consider suicide. Patient is explained limitations of prescribing these highly controlled substances and is receptive to receiving a single Ativan at this time. Patient states she does have mental health services that she does see regularly and will follow-up with. Undiagnosed new problem with uncertain prognosis? @ -No Drug Therapy requiring intensive monitoring for toxicity (Heparin, Nitro, Insulin, Cardizem)? @ -No Were any procedures done? @ -No Diagnosis/symptom? @ -Anxiety Acute, or Chronic, or Acute on Chronic? @ -Acute Uncomplicated (without systemic symptoms) or Complicated (systemic symptoms)? @ -Default Side effects of treatment? @ -No Exacerbation, Progression, or Severe Exacerbation? @ -No Poses a threat to life or bodily function? How? (Chest pain, [place], [place], pneumonia, PE, COPD, DKA, ARF, appy, cholecystitis, CVA, Diverticulitis, Homicidal, Suicidal, threat to staff... and all critical care pts) @ -No Disposition Clinical Impression: Anxiety Disposition: HOME SELF-CARE Condition: Stable Instructions (If sedation given, give patient instructions): Anxiety (ED) Additional Instructions: Please do follow-up with your mental health provider in the next day or 2 for recheck. Please also follow-up with your primary care physician in the next day or 2 for recheck. Return for thoughts of self-harm, worsening symptoms or other concerns. Is patient prescribed a controlled substance at d/c from ED?: No Referrals: Jim Chan MD [Primary Care Provider] - 1-2 days Time of Disposition: 14:34
[2024-12-18] MEDS: LORazepam 1 MG TAB PO STA (14:53)
== END 2024-12-18 14:55 | disposition home or self-care (01) ==
LOC: EC 14:13
DX: F41.9 Anxiety disorder, unspecified (principal); F17.290 Nicotine dependence, other tobacco product, uncomplicated
CPT/HCPCS: 99282